=== PATIENT | female | born 1960 | race Caucasian/White ===

== ENCOUNTER 2020-10-07 14:46 | Inpatient (IN) | payer MEDICARE, OTHER ==
[~2020-10-07] VITALS: Ht 154.9 cm; Wt 61.4 kg
--- NOTE | 2020-10-07 15:21 | REP ---
INDICATION: Altered Mental Status. COMPARISON: None. TECHNIQUE: Helical scanning is acquired. 5 mm axial images were reformatted. Coronal MPR images were generated. FINDINGS: Bone window settings demonstrate an intact bony calvarium. There is no evidence of skull fracture or incidental bony calvarial lesion. The visualized paranasal sinuses appear clear. No intraorbital abnormality is seen. On soft tissue window setting images; the lateral, third, and fourth ventricles are normal in size and position. Meza-white differentiation pattern is normal above and below the tentorium. There are is no evidence of intracranial hemorrhage. No mass, edema, infarction, or midline shift is seen. No extra-axial fluid collection is appreciated. IMPRESSION: Negative noncontrast head CT. <Electronically signed by Caleb Moreno > 10/07/20 [id number]
[2020-10-07 15:27] LABS: BASO # 0.1 10^3/uL (0.0-0.2); BASO % 0.6 % (0.0-1.0); EOS # 0.2 10^3/uL (0.0-0.5); EOS % 1.8 % (0.0-3.0); LYMPH # 1.8 10^3/uL (1.5-5.0); LYMPH % 20.4 % (24.0-44.0); MEAN CORPUSCULAR HEMOGLOBIN 30.2 pg (27.0-33.0); MEAN CORPUSCULAR HGB CONC 32.5 g/dl (32.0-36.5); MEAN CORPUSCULAR VOLUME 92.8 fl (80.0-96.0); MONO # 0.6 10^3/uL (0.0-0.8); MONO % 6.7 % (2.0-8.0); NEUTROPHILS # 6.1 10^3/uL (1.5-8.5); PLATELET COUNT, AUTOMATED 385 10^3/uL (150-450); RED BLOOD COUNT 4.31 10^6/uL (4.00-5.40); WHITE BLOOD COUNT 8.8 10^3/uL (4.0-10.0)
[2020-10-07 17:14] LABS: OSMOLALITY SERUM 295 MOSM/KG (275-295)
[2020-10-07 17:36] LABS: ALBUMIN 4.1 GM/DL (3.2-5.2); ALT/SGPT 15 U/L (12-78); BILIRUBIN,DIRECT < 0.1 MG/DL (0.0-0.2); BILIRUBIN,TOTAL 0.6 MG/DL (0.2-1.0); BLOOD UREA NITROGEN 16 MG/DL (7-18); CALCIUM LEVEL 9.9 MG/DL (8.5-10.1); CARBON DIOXIDE LEVEL 25 MEQ/L (21-32); CHLORIDE LEVEL 109 MEQ/L (98-107); CK-MB VALUE MASS < 1.0 NG/ML (<3.6); CPK CREATINE PHOSPHOKINASE 30 U/L (26-192); CREATININE FOR GFR 0.98 MG/DL (0.55-1.30); GLOMERULAR FILTRATION RATE > 60.0 (>51); GLUCOSE, FASTING 97 MG/DL (70-100); LITHIUM LEVEL 0.88 MEQ/L (0.60-1.20); MB/CK RELATIVE INDEX 3.33 (< OR =4); POTASSIUM SERUM 4.3 MEQ/L (3.5-5.1); SODIUM LEVEL 140 MEQ/L (136-145); TOTAL PROTEIN 7.1 GM/DL (6.4-8.2); TROPONIN I < 0.02 NG/ML (< 0.10)
--- NOTE | 2020-10-07 18:11 | REPVR ---
PROCEDURE INFORMATION: Exam: MR Head Without Contrast Exam date and time: 10/07/2020 3:22 PM Age: 60 years old Clinical indication: Other: Ataxia; Additional info: Ataxia ? cerebellar TECHNIQUE: Imaging protocol: MR of the head without contrast. COMPARISON: CT Head without contrast 10/07/2020 2:59 PM FINDINGS: Brain: Two small T1-T2 bright flat interhemispheric foci , dark on gradient weighted imaging consistent with small foci of subdural hemorrhage possibly related to age indeterminate trauma in this patient without any reported history of trauma. Also noted are T1-T2 bright and gradient dark foci of signal abnormality in the posterior convexities near the vertex bilaterally also suspect for age indeterminate hemorrhage in the subdural space. Again the finding may be related to prior trauma. Cerebral ventricles: Normal. No ventriculomegaly. Bones/joints: Unremarkable. Paranasal sinuses: Normal as visualized. No acute sinusitis. Mastoid air cells: Normal as visualized. No mastoid effusion. Orbital cavity: Unremarkable. Soft tissues: Unremarkable. IMPRESSION: 1. Two small T1-T2 bright flat interhemispheric foci , dark on gradient weighted imaging consistent with small foci of subdural hemorrhage possibly related to age indeterminate trauma in this patient without any reported history of trauma. 2. Also noted are T1-T2 bright and gradient dark foci of signal abnormality in the posterior convexities near the vertex bilaterally also suspect for age indeterminate hemorrhage in the subdural space. Again the finding may be related to prior trauma. Electronically signed by: Olivier Gordon On 10/07/2020 18:10:30 PM
--- NOTE | 2020-10-07 18:12 | REPVR ---
PROCEDURE INFORMATION: Exam: MRA Head Without Contrast; Arteriography Exam date and time: 10/07/2020 3:22 PM Age: 60 years old Clinical indication: Other: Ataxia; Additional info: Ataxia ? cerebellar TECHNIQUE: Imaging protocol: Magnetic resonance angiography head without contrast. Exam focused on the arteries. COMPARISON: CT Head without contrast 10/07/2020 2:59 PM FINDINGS: ANTERIOR CIRCULATION: Right internal carotid artery: Intracranial segment is patent with no significant stenosis. No aneurysm. Right middle cerebral artery: No occlusion or significant stenosis. No aneurysm. Right anterior cerebral artery: No occlusion or significant stenosis. No aneurysm. Left internal carotid artery: Intracranial segment is patent with no significant stenosis. No aneurysm. Left middle cerebral artery: No occlusion or significant stenosis. No aneurysm. Left anterior cerebral artery: No occlusion or significant stenosis. No aneurysm. POSTERIOR CIRCULATION: Right vertebral artery: No occlusion or significant stenosis. No aneurysm. Left vertebral artery: No occlusion or significant stenosis. No aneurysm. Basilar artery: No occlusion or significant stenosis. No aneurysm. Right posterior cerebral artery: No occlusion or significant stenosis. No aneurysm. Left posterior cerebral artery: No occlusion or significant stenosis. No aneurysm. IMPRESSION: No stenosis or occlusion. Electronically signed by: Olivier Gordon On 10/07/2020 18:12:23 PM
[2020-10-07 18:42] LABS: ACETAMINOPHEN LEVEL < 2.0 UG/ML (10.0-30.0); ETHYL ALCOHOL (ETHANOL) < 0.003 % (0.000-0.010); SALICYLATE LEVEL < 1.7 MG/DL (5.0-30.0)
[2020-10-07] MEDS ORDERED: LORazepam 1 MG TAB PO STA (18:59)
[2020-10-07 20:51] LABS: RSV AMPLIFICATION NEGATIVE (NEGATIVE)
[2020-10-07 23:26] LABS: AMPHETAMINES LEVEL URINE NEGATIVE (NEGATIVE); BARBITURATES URINE NEGATIVE (NEGATIVE); BENZODIAZEPINES URINE NEGATIVE (NEGATIVE); CANNABINOIDS URINE NEGATIVE (NEGATIVE); COCAINE METABOLITE URINE NEGATIVE (NEGATIVE); METHADONE URINE NEGATIVE (NEGATIVE); OPIATES URINE NEGATIVE (NEGATIVE); PHENCYCLIDINE URINE NEGATIVE (NEGATIVE)
[2020-10-08] MEDS ORDERED: LORazepam 1 MG TAB PO STA (03:46)
[2020-10-08] MEDS ORDERED: LORazepam 1 MG TAB PO ONE ×3 (03:50→20:55)
[2020-10-08] MEDS ORDERED: VENLAFAXINE **XR** 75MG CAPSULE PO ONE (08:20)
[2020-10-08] MEDS ORDERED: lamoTRIgine 100MG TAB PO ONE ×2 (08:20→20:55)
[2020-10-08] MEDS ORDERED: LITHIUM CARBONATE 300 MG **CR** TAB PO ONE ×2 (08:20→20:55)
--- NOTE | 2020-10-08 08:21 | ED PDOC ---
Post-Departure Follow-Up raiology repo rtfaxed to katharine Lomeli Sarah MD Oct 08, 2020 08:21
[2020-10-08] MEDS ORDERED: LITH1TAB PO (10:08)
[2020-10-08] MEDS ORDERED: LATU40TA PO (10:08)
[2020-10-08] MEDS ORDERED: VENL75CA47 PO (10:08)
[2020-10-08] MEDS ORDERED: LAMO150T3 PO (10:08)
[2020-10-08] MEDS ORDERED: LORA1TAB4 PO (10:08)
[2020-10-09] MEDS ORDERED: LITHIUM CARBONATE 300 MG **CR** TAB PO ONE (07:45)
[2020-10-09] MEDS ORDERED: lamoTRIgine 100MG TAB PO ONE (07:45)
[2020-10-09] MEDS ORDERED: VENLAFAXINE **XR** 75MG CAPSULE PO ONE (07:45)
[2020-10-09] MEDS ORDERED: LORazepam 1 MG TAB PO ONE (09:00)
[2020-10-09] MEDS ORDERED: MAALOX 30 ML SUSP *UDC PO PRN (11:10)
[2020-10-09] MEDS ORDERED: MOM 30ML SUSPENSION UDC PO PRN (11:10)
[2020-10-09] MEDS ORDERED: traZODone 50 MG TAB PO PRN (11:10)
[2020-10-09] MEDS ORDERED: ACETAMINOPHEN TAB 650MG DOSE (2X325MG) PO PRN (11:10)
--- NOTE | 2020-10-09 16:37 | ECGEPIP ---
[facility] - ED Test Date: 2020-10-07 Pat Name: LATOYA LUNA Department: Room: - Gender: Female It Security Architect: NATLAEE : 1960 Requested By: Pooja Chau Order Number: [id number] Reading MD: Pooja Chau Measurements Intervals [place] Rate: 94 P: 54 HI: 168 QRS: 71 QRSD: 88 T: 29 QT: 364 QTc: 455 Interpretive Statements Normal sinus rhythm prwp NSTTW abnormalities No prior Electronically Signed on 10-09-2020 16:36:57 EDT by Pooja Chau
--- NOTE | 2020-10-09 16:48 | ECGEPIP ---
[facility] - ED Test Date: 2020-10-08 Pat Name: LATOYA LUNA Department: Room: - Gender: Female Waterproofer: Daysi CID : 1960 Requested By: KARLA Plascencia Order Number: [id number] Reading MD: Pooja Chau Measurements Intervals [place] Rate: 80 P: 74 HI: 166 QRS: 84 QRSD: 88 T: 44 QT: 392 QTc: 452 Interpretive Statements Normal sinus rhythm NSTTW abnormalities decreased rate 10/07/20 Electronically Signed on 10-09-2020 16:48:37 EDT by Pooja Chau
[2020-10-09] MEDS: LORazepam 1 MG TAB PO PRN (18:33)
[2020-10-09] MEDS: lamoTRIgine 100MG TAB PO SCH (20:24)
[2020-10-09] MEDS: LITHIUM CARBONATE 300 MG **CR** TAB PO SCH (20:24)
[2020-10-09] MEDS ORDERED: PILL CUTTER 1 EACH XX PRN (21:00)
[2020-10-10] MEDS: LORazepam 1 MG TAB PO PRN ×3 (00:50→20:08)
[2020-10-10 06:00] VITALS: BP 130/76
[2020-10-10] MEDS: LITHIUM CARBONATE 300 MG **CR** TAB PO SCH ×2 (09:00→20:08)
[2020-10-10] MEDS: VENLAFAXINE **XR** 75MG CAPSULE PO SCH (09:01)
[2020-10-10] MEDS: lamoTRIgine 100MG TAB PO SCH ×2 (09:01→20:08)
--- NOTE | 2020-10-10 11:07 | MHHPEPDOC ---
General Date Of Admission: Oct 09, 2020 Legal Status: 9.39 Chief Complaint "[I came to the hospital because of my hand tremor. I don't know why they said I was a suicide]. History of Present Illness HISTORY OF THE PRESENT ILLNESS: Patient is a 60 -year-old , female, who [has a past history of the manic episode, 32 years ago] and has been in ongoing treatment with lithium and antidepressant medicine on and off. She recently moved to [place] from [place] to be near her daughter, but has been continuing outpatient treatment. She came to the emergency room 3 days of with the complaint of the tremor on her hands and all the routine. Labs were within n ormal limits. Patient was kept at the emergency room and admitted due to reported suicidal ideas, but patient stated that she has not expressed any suicidal thoughts and she never had any suicidal attempts and does not feel suicidal.. She did have on and off depression with feeling sad with crying spells but has been doing fairly good with the current medicine of Effexor and Lamictal. She is pleasant, organized, and in no acute distress and denies any thoughts of suicide and her lithium level was 0.88 and she is not reporting any other toxic or side effect from lithium.. She is agreeing to stay to complete the evaluation, but wants to go home [place]. Psychiatric Review of Systems Depression (2 or more weeks): depressed mood, psychomotor changes, other (. Occasionally crying spells) Dionne (4 or more days of): denies, other (had a manic episode, 32 years ago) Psychosis: denies PTSD: denies Anxiety: denies Past Psychiatric History Previous Psychiatric Diagnosis: [Bipolar disorder]. Previous Psychiatric Admissions: [One admission 30 years ago]. Suicide Attempts: [Daughter]. Psychiatric Follow-up: [In active treatment]. Psychiatric medications: [Effexor Lamictal and lithium]. Past Medical History Medical Problems No medical history Head Injury: No Seizures: No Hospitalizations: No Surgeries: No Family Medical/Psychiatric HX Medical Problems Both parents are . Lung cancer and leukemia Psychiatric Disorders: No Addiction: No Suicide Attemps/Completions: No Addiction History denies Social History Childhood: [Uneventful]. Abuse/Trauma:[No abuse history]. Current Living Situation: [Lives alone, moved from [place] in June 2020]. Education: [Masters degree in education]. 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 Social Support: [Border]. Legal: [None]. Marital: [, 5 years ago]. Mental Status Examination General Appearance: well groomed, appears stated age Build: thin Demeanor: average Eye Contact: average Activity: average Behavior: cooperative Speech: clear, normal volume Mood: euthymic (. Denies any serious depression) Affect: appropriate, congruent Thought Process: logical/linear Thought Content (Delusions): none reported, denies SI, HI, AVH Thought Content (Other): none reported Thought Content (Aggressive): none reported Perception (Hallucinations): none reported Perception (Other): none reported Cognition (Impairment of): none reported Cognition(Intelligence Est.): average Oriented: Awake, Alert, Oriented times three Insight: good Judgment: Good Psychosis: Denies Diagnoses History of bipolar disorder, currently mildly depressed A-FIB/CHADSVASC A-FIB History Current/History of A-Fib/PAF?: No Current PO Anticoag Therapy: No Age/Risk Factor Scoring CHADSVASC: CHADSVASC Response (Comments) Value Gender Risk Factor Female 1 Hx of CHF No 0 Hx of HTN No 0 Hx of Stroke/TIA/or VTE No 0 Hx of Diabetes No 0 Hx of Vascular Disease No 0 Total 1 Treatment Treatment ordered: NONE Assessment Doesn't appear to be acutely suicidal and has a good support system and linked with ongoing outpatient treatment. Needs further assessment for a tremor and lethality evaluation Initial Treatment Plan 1. Patient was admitted on a [9.39] status. 2. Complete history was obtained. 3. With patients permission, family will be contacted and database will be expanded. 4. Patients medication regimen will be reviewed and changed accordingly. 5. Patient will be provided with protected environment. 6. Patient will be treated with individual, group, and milieu therapies. 7. Patient will receive supportive psych-education. 8. Discharge planning will commence immediately. 9. Outpatient follow-up treatment will be strongly recommended. 10. The initial treatment plan will focus initially on: * Depression. * Risk for suicide. ESTIMATED LENGTH OF STAY: [2]- DAYS. TIME SPENT COUNSELING AND COORDINATING INITIAL CARE: [45] minutes. Tobacco Cessation Screen If Patient is a Smoker Nonsmoker N/A-No Antipsychotics Vital Signs Vital Signs Date Time Temp Pulse Resp B/P (MAP) Pulse Ox O2 Delivery O2 Flow Rate FiO2 10/10/20 06:00 97.4 91 18 130/76 (94) 98 Room Air Medications Scheduled Lamotrigine (Lamotrigine) 150 Mg Tablet, 150 MG PO BID, (Reported) [place] Carbonate ([place] Carbonate ER) 300 Mg Tablet.er, 300 MG PO BID, (Reported) Venlafaxine HCl (Venlafaxine HCl ER) 75 Mg Cap.er.24h, 225 MG PO DAILY, (Repor renee) Scheduled PRN Lorazepam (Lorazepam) 1 Mg Tablet, 1 MG PO TID PRN for ANXIETY, (Reported) Allergies Coded Allergies: No Known Drug Allergies (Verified Allergy, Unknown, 10/07/20) ERIC BECERRA M.D. Oct 10, 2020 11:07
--- NOTE | 2020-10-10 13:39 | HPEPDOC ---
[facility] Medical History & Physical Date of Admission Oct 09, 2020 Date of Service: Oct 10, 2020 History and Physical Chief complaint: Who presented to the emergency room with suicidal ideation/hand tremor History of present illness: Patient is a 60-year-old female with past medical history of bipolar disorder, psoriasis and psoriatic arthritis who presented to the emergency room with hand tremors. Patient had mentioned suicidal aviation and was subsequently admitted to the inpatient mental health unit under the care of psychiatry. Hospitalist service was consulted for medical screening evaluation. Currently patient denies any headache, nausea, vomiting, chest pain, shortness breath or cough. Denies any abdominal pain, constipation, diarrhea, or urinary discomfort. She denies any recent fevers or chills. Reports her appetite has been relatively normal. Patient reports some palpitations. However, she attributes this to anxiety. 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 Review of Systems: 10 point review of systems complete, all negative otherwise stated in HPI Physical exam: - Vitals: BP [130/76], HR [91], RR [18], Sat [98%RA], Temp [97.4F] - General: Lying in bed, No acute distress, Speaking in full sentences, AAOx3 - HEENT: NC, AT, PERRLA - CVS: RRR, +S1S2 - Lungs: Fair air entry bilaterally, No appreciable wheezing / rales / rhonchi - Abdomen: Soft, Non-distended, Non-tender - Extremities: No lower extremity edema, No calf tenderness - Neuro: No focal motor or sensory deficit - Skin: No visible rashes Labs: See below Imaging: CT head 10/07: Negative noncontrast head CT. MRI Brain 10/07: 1. Two small T1-T2 bright flat interhemispheric foci , dark on gradient weighted imaging consistent with small foci of subdural hemorrhage possibly related to age indeterminate trauma in this patient without any reported history of trauma. 2. Also noted are T1-T2 bright and gradient dark foci of signal abnormality in the posterior convexities near the vertex bilaterally also suspect for age indeterminate hemorrhage in the subdural space. Again the finding may be related to prior trauma. MRA Brain 10/07: No stenosis or occlusion. EKG: See below Assessment and Plan: Suicidal ideation - Patient is a prior history of bipolar disorder - Has been admitted to the inpatient mental health unit under the care of psychiatry - Currently being managed by psychiatry Abnormal MRI findings - MRI suggests prior history of hemorrhage - Patient reports that she has fallen in the winter - Will have outpatient follow-up with neurology Psoriasis/psoriatic arthritis - Patient reports that she takes Enbrel as an outpatient DVT prophylaxis - Will continue with early ambulation Female watershed tender was present for the duration of his history and physical examination Thank you for this consultation; hospitalist service will now sign off, please reconsult as needed Vital Signs Vital Signs Date Time Temp Pulse Resp B/P (MAP) Pulse Ox O2 Delivery O2 Flow Rate FiO2 10/10/20 06:00 97.4 91 18 130/76 (94) 98 Room Air Home Medications Scheduled Lamotrigine (Lamotrigine) 150 Mg Tablet, 150 MG PO BID [place] Carbonate ([place] Carbonate ER) 300 Mg Tablet.er, 300 MG PO BID Venlafaxine HCl (Venlafaxine HCl ER) 75 Mg Cap.er.24h, 225 MG PO DAILY Scheduled PRN Lorazepam (Lorazepam) 1 Mg Tablet, 1 MG PO TID PRN for ANXIETY Allergies Coded Allergies: No Known Drug Allergies (Verified Allergy, Unknown, 10/07/20) MATILDE RAMOS MD Oct 10, 2020 13:39
[2020-10-10 16:20] VITALS: BP 124/66
[2020-10-11 06:24] VITALS: BP 124/59
--- NOTE | 2020-10-11 08:57 | MHDSPDOC ---
[facility] Discharge Summary Discharge Summary DATE OF ADMISSION: Oct 09, 2020 at 11:09 DATE OF DISCHARGE: 10/11/2020 DISCHARGE DIAGNOSES: 1. . Bipolar disorder, depressed 2. . REASON FOR ADMISSION: 60-year-old single female with a long history of bipolar disorder apparently came to the emergency room with complaint of tremor in her hands and arms. She reportedly made a comment of suicidal ideas and was admitted on 939 status. After her admission patient denies making any suicidal comment and stated that they must have misunderstood her complaint. She has been taking 600 mg of lithium and was experiencing increasing tremor in her hands and arms which is intermittent but gets worse when she tries to write or do things with her hands., She was getting concerned and came to emergency room seeking help and denies making any suicidal threats. She has recently moved to [place] from [place] to be near her daughter, but is continuing her outpatient treatment with psychiatrist and [place]. CONSULTANTS INVOLVED: Will be referred to a neurologist clinic for follow-upfor the tremor. TREATMENT AND PROGRESS ON THE UNIT : . She was also sent for supportive therapy and lethality evaluation and restarted on her home medications of lithium, Lamictal, and Effexor. On admission blood lithium level was 0.88 and she doesn't have any other side effects., It is possible that the tremor might be related to her lithium, especially the nature of intention, tremor and not the resting tremor that is more typical of Parkinson's nature and patient will be advised to discuss with the outpatient psychiatrist and neurologist to consider any changes in her lithium therapy.. HOSPITAL COURSE: , She remained in good control in no acute distress and denies any suicidal thoughts, plan or intent and has no history of suicide attempt." Daughter was contacted who also reports that she has no issues with lethality and and feels the patient is at her baseline mental status and asking for discharge. DISCHARGE ASSESSMENT: Kamila and not suicidal MENTAL STATUS EXAMINATION ON DISCHARGE: Patient is a 60-year old female, who is , pleasant, cooperative. Speech is , productive, spontaneous. Language skills are good . Thought processes including: Well-organized. Thought content: More serious depression. No suicidal thoughts. Abstract reasoning, and computation: Good. Description of associations: Well-organized. Description of abnormal or psychotic thoughts: None. Judgment: Good. . Insight: Good. Orientation to , well oriented. Recent and remote memory: Good. Attention span and concentration: Good. Language: . Fund of knowledge: . Mood: Euthymic. Affect: , Appropriate. MEDICATIONS ON DISCHARGE: - for ., No prescription was given. Patient is to continue her home medications - for . - for . PLAN/FOLLOWUP ARRANGEMENTS: [Continued current outpatient and patient has appo intment to see her psychiatrist on , October 12. The amount of time spent in the coordination of care for this patient was approximately 40 minutes. ETOH/Disorder Med Rx ETOH/DRUG DISORDER RX: N/A Vital Signs/I&Os Vital Signs Date Time Temp Pulse Resp B/P (MAP) Pulse Ox O2 Delivery O2 Flow Rate FiO2 10/11/20 06:24 99.1 68 18 124/59 (80) 97 Room Air Medications Scheduled Lamotrigine (Lamotrigine) 150 Mg Tablet, 150 MG PO BID, (Reported) [place] Carbonate ([place] Carbonate ER) 300 Mg Tablet.er, 300 MG PO BID, (Reported) Venlafaxine HCl (Venlafaxine HCl ER) 75 Mg Cap.er.24h, 225 MG PO DAILY, (Reported) Scheduled PRN Lorazepam (Lorazepam) 1 Mg Tablet, 1 MG PO TID PRN for ANXIETY, (Reported) Allergies Coded Allergies: No Known Drug Allergies (Verified Allergy, Unknown, 10/07/20) ERIC BECERRA M.D. Oct 11, 2020 08:57
[2020-10-11] MEDS: LITHIUM CARBONATE 300 MG **CR** TAB PO SCH (09:07)
[2020-10-11] MEDS: VENLAFAXINE **XR** 75MG CAPSULE PO SCH (09:07)
[2020-10-11] MEDS: lamoTRIgine 100MG TAB PO SCH (09:09)
== END 2020-10-11 11:25 | disposition home or self-care (01) | DRG 885 ==
LOC: M ED 14:46 → EDBD 14:46 → M ED INP 10-09 11:09 → M PSY 10-09 12:30 → M ED INP 10-09 12:30 → M PSY 10-09 12:45
PROVIDERS: ADMIT Psychiatry & Neurology Psychiatry; ATTEND Psychiatry & Neurology Psychiatry
DX: F31.9 Bipolar disorder, unspecified (principal); L40.50 Arthropathic psoriasis, unspecified; Z79.899 Other long term (current) drug therapy; R25.1 Tremor, unspecified

== ENCOUNTER → 2020-12-04 | Outpatient (REF) | payer MEDICARE, OTHER ==
[~2020-12-04] MED LIST: LAMO150T3 PO; LATU40TA PO; LITH1TAB PO; LORA1TAB4 PO; VENL75CA47 PO
[2020-12-04 17:35] LABS: APPEARANCE, URINE CLEAR (CLEAR); BACTERIA, URINE AUTO NEGATIVE (NEGATIVE); BILIRUBIN, URINE AUTO NEGATIVE (NEGATIVE); BLOOD, URINE BLOOD NEGATIVE (NEGATIVE); COLOR, URINE STRAW (YELLOW); GLUCOSE, URINE (UA) AUTO NEGATIVE (NEGATIVE); KETONE, URINE AUTO NEGATIVE (NEGATIVE); LEUKOCYTE ESTERASE, URINE AUTO NEGATIVE (NEGATIVE); NITRITE, URINE AUTO NEGATIVE (NEGATIVE); PROTEIN, URINE AUTO NEGATIVE (NEGATIVE); RBC, URINE AUTO 0 /HPF (0-3); SPECIFIC GRAVITY URINE AUTO 1.006 (1.002-1.035); SQUAMOUS EPITHELIAL CELL UR AU 1 /HPF (0-6); UROBILINOGEN, URINE AUTO 0.2 mg/dL (0.0-2.0); WBC, URINE AUTO 2 /HPF (0-3)
== END ==
LOC: M LAB REF 16:53
PROVIDERS: ATTEND Physician Assistant Medical
DX: N39.0 Urinary tract infection, site not specified (principal)

== ENCOUNTER → 2021-01-26 | Outpatient (REF) | payer MEDICARE, OTHER | LOC: M LAB REF 16:42 | PROVIDERS: ATTEND Internal Medicine | DX: E83.52 Hypercalcemia (principal) ==

== ENCOUNTER 2021-03-29 13:50 | Emergency (ER) | payer MEDICARE, OTHER ==
[~2021-03-29] VITALS: Ht 154.9 cm; Wt 61.0 kg
[2021-03-29] MEDS ORDERED: ARIP10TA32 (13:59)
[2021-03-29] MEDS ORDERED: CLON1TAB8 (13:59)
[2021-03-29] MEDS ORDERED: LEVO100T5 (13:59)
[2021-03-29] MEDS ORDERED: CHARCOAL ACTIVATED LIQUID 25 GM/120 ML BTL PO ONE (14:05)
[2021-03-29 14:24] LABS: BASO # 0.1 10^3/uL (0.0-0.2); BASO % 0.8 % (0.0-1.0); EOS # 0.1 10^3/uL (0.0-0.5); EOS % 0.8 % (0.0-3.0); HEMATOCRIT 41.1 % (36.0-47.0); HEMOGLOBIN 13.6 g/dl (12.0-15.5); LYMPH # 1.6 10^3/uL (1.5-5.0); LYMPH % 25.7 % (24.0-44.0); MEAN CORPUSCULAR HEMOGLOBIN 30.4 pg (27.0-33.0); MEAN CORPUSCULAR HGB CONC 33.1 g/dl (32.0-36.5); MEAN CORPUSCULAR VOLUME 91.7 fl (80.0-96.0); MONO # 0.4 10^3/uL (0.0-0.8); NEUTROPHILS # 4.2 10^3/uL (1.5-8.5); NEUTROPHILS % 66.5 % (36.0-66.0); PLATELET COUNT, AUTOMATED 325 10^3/uL (150-450); RED BLOOD COUNT 4.48 10^6/uL (4.00-5.40); WHITE BLOOD COUNT 6.4 10^3/uL (4.0-10.0)
[2021-03-29 14:58] LABS: OSMOLALITY SERUM 305 MOSM/KG (275-295)
[2021-03-29 15:00] LABS: RSV AMPLIFICATION NEGATIVE (NEGATIVE)
[2021-03-29 15:05] LABS: ACETAMINOPHEN LEVEL < 2.0 UG/ML (10.0-30.0); ALT/SGPT 22 U/L (12-78); BILIRUBIN,DIRECT < 0.1 MG/DL (0.0-0.2); BILIRUBIN,TOTAL 0.3 MG/DL (0.2-1.0); BLOOD UREA NITROGEN 28 MG/DL (7-18); CALCIUM LEVEL 10.4 MG/DL (8.5-10.1); CARBON DIOXIDE LEVEL 27 MEQ/L (21-32); CHLORIDE LEVEL 110 MEQ/L (98-107); CREATININE FOR GFR 0.99 MG/DL (0.55-1.30); ETHYL ALCOHOL (ETHANOL) < 0.003 % (0.000-0.010); GLOMERULAR FILTRATION RATE > 60.0 (>51); GLUCOSE, FASTING 93 MG/DL (70-100); POTASSIUM SERUM 4.2 MEQ/L (3.5-5.1); SALICYLATE LEVEL < 1.7 MG/DL (5.0-30.0); SODIUM LEVEL 143 MEQ/L (136-145); TOTAL PROTEIN 6.9 GM/DL (6.4-8.2)
[2021-03-29 15:07] LABS: AMPHETAMINES LEVEL URINE NEGATIVE (NEGATIVE); BARBITURATES URINE NEGATIVE (NEGATIVE); BENZODIAZEPINES URINE NEGATIVE (NEGATIVE); CANNABINOIDS URINE NEGATIVE (NEGATIVE); COCAINE METABOLITE URINE NEGATIVE (NEGATIVE); METHADONE URINE NEGATIVE (NEGATIVE); OPIATES URINE NEGATIVE (NEGATIVE); PHENCYCLIDINE URINE NEGATIVE (NEGATIVE)
[2021-03-29] MEDS ORDERED: NS 1,000 ML IV ONE ×2 (16:15→18:10)
--- NOTE | 2021-03-29 20:33 | ECGEPIP ---
[facility] - ED Test Date: 2021-03-29 Pat Name: LATOYA LUNA Department: Room: - Gender: Female Shovel Operator: LR : 1960 Requested By: EFRAIN Arce Order Number: [id number] Reading MD: Hector Lehman Measurements Intervals [place] Rate: 111 P: 61 [place]: 168 QRS: 103 QRSD: 88 T: 26 QT: 336 QTc: 456 Interpretive Statements Sinus tachycardia Rightward axis SIMILAR TO 10/08/20 Electronically Signed on 03-29-2021 20:33:35 EST by Hector Lehman
[2021-03-29] MEDS ORDERED: ONDANSETRON 4 MG ORAL DISINTEGRATING TAB PO ONE (22:15)
[2021-03-30 09:00] VITALS: BP 128/62
== END 2021-03-30 09:03 ==
LOC: M ED 13:50 → EDBD 13:50 → M ED 03-30 09:03
DX: R45.851 Suicidal ideations (principal); T42.0X2A Poisoning by hydantoin derivatives, intentional self-harm, initial encounter; F31.30 Bipolar disorder, current episode depressed, mild or moderate severity, unspecified; F19.10 Other psychoactive substance abuse, uncomplicated; R00.0 Tachycardia, unspecified; Z79.899 Other long term (current) drug therapy
CPT/HCPCS: 36415; 80048; 80076; 80143; 80175; 80307; 82077; 82550; 83930; 84443; 85025; 87631; 93005; 93041; 94760; 96360; 96361; 99285; Q0162

== ENCOUNTER 2021-08-04 12:26 | Inpatient (IN) | payer MEDICARE, OTHER ==
[2021-08-04] VITALS (13 sets, daily range): BP systolic 162–215; BP diastolic 67–129
[~2021-08-04] VITALS: Ht 154.9 cm; Wt 61.5 kg
[~2021-08-04 12:26] MED LIST changes: +AMOX875T2 PO; +ARIP10TA32; +ATIV1TAB10 PO; +CLOB5CR TOP; +CLON-412 PO; +CLON0.2T PO; +CLON1TAB8; +DEPA500T2 PO; -LATU40TA PO; +LATU40TA2 PO; +LEVO100T5; +LEXA1TAB PO; +LEXA1TAB2 PO; +MIRT-60 PO; +MIRT1TAB16 PO; +PENC1CR TOP; +PROP10TA56 PO; +SERO1TAB PO; +SERO50TA PO; +SYNT100T PO; +TRAZ-252 PO; +VITA100T14 PO
[2021-08-04] MEDS ORDERED: NS 1,000 ML IV SCH (12:40)
[2021-08-04] MEDS ORDERED: LIDOCAINE 2% 5ML JELLY UROJET TOP ONE (12:40)
[2021-08-04] MEDS ORDERED: NS 1,000 ML IV ONE ×3 (13:05→16:25)
[2021-08-04 13:07] LABS: BASO % 0.3 % (0.0-1.0); HEMATOCRIT 37.5 % (36.0-47.0); HEMOGLOBIN 12.3 g/dl (12.0-15.5); LYMPH % 13.7 % (24.0-44.0); MEAN CORPUSCULAR HEMOGLOBIN 32.3 pg (27.0-33.0); MEAN CORPUSCULAR HGB CONC 32.8 g/dl (32.0-36.5); MEAN CORPUSCULAR VOLUME 98.4 fl (80.0-96.0); MONO # 0.2 10^3/uL (0.0-0.8); MONO % 2.9 % (2.0-8.0); NEUTROPHILS # 5.9 10^3/uL (1.5-8.5); NEUTROPHILS % 80.5 % (36.0-66.0); PLATELET COUNT, AUTOMATED 429 10^3/uL (150-450); RED BLOOD COUNT 3.81 10^6/uL (4.00-5.40); WHITE BLOOD COUNT 7.4 10^3/uL (4.0-10.0)
[2021-08-04] MEDS ORDERED: ISOVUE-370 76% 100ML VIAL As Ordered ONE (13:09)
[2021-08-04 13:21] LABS: INR 1.03; PROTHROMBIN TIME 13.9 SECONDS (12.7-14.5)
[2021-08-04 13:22] LABS: PARTIAL THROMBOPLASTIN TIME 31.4 SECONDS (25.9-37.0)
[2021-08-04 13:33] LABS: CK-MB VALUE MASS 6.3 NG/ML (<3.6); MB/CK RELATIVE INDEX 1.45 (< OR =4)
[2021-08-04 13:41] LABS: AMPHETAMINES LEVEL URINE NEGATIVE (NEGATIVE); BARBITURATES URINE NEGATIVE (NEGATIVE); BENZODIAZEPINES URINE NEGATIVE (NEGATIVE); CANNABINOIDS URINE NEGATIVE (NEGATIVE); COCAINE METABOLITE URINE NEGATIVE (NEGATIVE); METHADONE URINE NEGATIVE (NEGATIVE); OPIATES URINE NEGATIVE (NEGATIVE); PHENCYCLIDINE URINE NEGATIVE (NEGATIVE)
[2021-08-04 13:45] LABS: CALCIUM LEVEL 8.9 MG/DL (8.8-10.2); CREATININE FOR GFR 1.11 MG/DL (0.55-1.30); GLOMERULAR FILTRATION RATE 53.4 (>45); POTASSIUM SERUM 3.3 MEQ/L (3.5-5.1)
[2021-08-04 13:46] LABS: ACETAMINOPHEN LEVEL 430.8 UG/ML (10.0-30.0); ALBUMIN 3.8 GM/DL (3.2-5.2); BILIRUBIN,DIRECT 0.2 MG/DL (0.0-0.2); BILIRUBIN,TOTAL 0.6 MG/DL (0.2-1.0); ETHYL ALCOHOL (ETHANOL) 0.136 % (0.000-0.010); SALICYLATE LEVEL 2.3 MG/DL (5.0-30.0); THYROID STIMULATING HORMONE 3.22 uIU/ML (0.358-3.740); TOTAL PROTEIN 7.2 GM/DL (6.4-8.2)
[2021-08-04 13:55] LABS: RSV AMPLIFICATION NEGATIVE (NEGATIVE)
[2021-08-04] MEDS ORDERED: PIPERACILLIN/TAZOBACTAM SOD 4.5 GM in D5W MINI-BAG PLUS 50 ML IV ONE (14:00)
[2021-08-04] MEDS ORDERED: TRAZ1TAB14 PO (14:48)
[2021-08-04] MEDS ORDERED: SENN-83 PO (14:48)
[2021-08-04] MEDS ORDERED: SYNT100T PO (14:48)
[2021-08-04] MEDS ORDERED: LAMO200T3 PO (14:48)
[2021-08-04] MEDS ORDERED: CELE20TA PO (14:48)
[2021-08-04] MEDS ORDERED: CLON1TAB8 PO (14:48)
[2021-08-04] MEDS ORDERED: BUSP10TA PO (14:48)
[2021-08-04] MEDS ORDERED: ACET1TAB55 PO (14:48)
[2021-08-04] MEDS ORDERED: B-COTAB10 PO (14:48)
[2021-08-04] MEDS ORDERED: IBUP-1022 PO (14:48)
[2021-08-04] MEDS ORDERED: DOCU100C16 PO (14:48)
[2021-08-04] MEDS ORDERED: MULT400T10 PO (14:48)
[2021-08-04] MEDS ORDERED: METH-1164 PO (14:48)
[2021-08-04] MEDS ORDERED: MIRT-10 PO (14:48)
[2021-08-04] MEDS ORDERED: ACETYLCYSTEINE IV ONE (14:55)
[2021-08-04] MEDS ORDERED: D5W IV ONE (14:55)
[2021-08-04 15:18] LABS: ABG pH (ARTERIAL) 7.337 UNITS (7.350-7.450)
[2021-08-04 15:19] LABS: ABG BASE EXCESS -14.4 (-2.0-2.0); ABG HCO3 9.3 MEQ/L (22.0-26.0); ABG O2 SATURATION 96.5 % (95.0-99.0); ABG PARTIAL PRESSURE CO2 17.7 mmHg (35.0-45.0); ABG STANDARD HCO3 13.2 MEQ/L (22.0-26.0); ABG TOTAL CO2 9.8 MEQ/L (23.0-31.0)
[2021-08-04] MEDS ORDERED: HOME MED LIST COMPLETE! XX SCH (15:20)
[2021-08-04 15:47] LABS: BLOOD UREA NITROGEN 23 MG/DL (7-18); CALCIUM LEVEL 7.8 MG/DL (8.8-10.2); CARBON DIOXIDE LEVEL 13 MEQ/L (21-32); CHLORIDE LEVEL 110 MEQ/L (98-107); CREATININE FOR GFR 0.97 MG/DL (0.55-1.30); GLOMERULAR FILTRATION RATE > 60.0 (>45); GLUCOSE, FASTING 129 MG/DL (70-100); POTASSIUM SERUM 3.5 MEQ/L (3.5-5.1); SODIUM LEVEL 140 MEQ/L (136-145)
[2021-08-04 15:53] LABS: CK-MB VALUE MASS 9.6 NG/ML (<3.6); MB/CK RELATIVE INDEX 1.73 (< OR =4)
[2021-08-04] MEDS ORDERED: ACETYLCYSTEINE IV SCH (16:00)
[2021-08-04] MEDS ORDERED: D5W IV SCH (16:00)
[2021-08-04] MEDS ORDERED: ACETYLCYSTEINE 20% 30 ML VIAL IV SCH (16:25)
[2021-08-04] MEDS ORDERED: NS IV ONE ×2 (16:30→21:00)
[2021-08-04] MEDS ORDERED: ONDANSETRON 4MG/2ML VIAL IV STA (16:30)
[2021-08-04] MEDS ORDERED: FOMEPIZOLE IV ONE ×2 (16:30→21:00)
[2021-08-04] MEDS ORDERED: ONDANSETRON 4MG/2ML VIAL As Ordered ONE (16:32)
[2021-08-04] MEDS ORDERED: PANTOPRAZOLE 40MG VIAL IV ONE (16:35)
[2021-08-04] MEDS ORDERED: ALBUTEROL SULFATE 2.5 MG/0.5 ML INH NEB SOLN INH PRN (16:40)
[2021-08-04] MEDS ORDERED: ONDANSETRON 4MG/2ML VIAL IV PRN (16:40)
[2021-08-04 18:08] LABS: CK-MB VALUE MASS 13.9 NG/ML (<3.6); MB/CK RELATIVE INDEX 1.91 (< OR =4)
[2021-08-04 19:10] LABS: HEMATOCRIT 29.6 % (36.0-47.0); HEMOGLOBIN 9.9 g/dl (12.0-15.5); MEAN CORPUSCULAR HEMOGLOBIN 31.8 pg (27.0-33.0); MEAN CORPUSCULAR HGB CONC 33.4 g/dl (32.0-36.5); MEAN CORPUSCULAR VOLUME 95.2 fl (80.0-96.0); PLATELET COUNT, AUTOMATED 357 10^3/uL (150-450); RED BLOOD COUNT 3.11 10^6/uL (4.00-5.40); WHITE BLOOD COUNT 13.5 10^3/uL (4.0-10.0)
[2021-08-04 19:37] LABS: ACETAMINOPHEN LEVEL 131.5 UG/ML (10.0-30.0); ALT/SGPT 95 U/L (12-78); BILIRUBIN,DIRECT 0.2 MG/DL (0.0-0.2); BILIRUBIN,TOTAL 0.6 MG/DL (0.2-1.0); BLOOD UREA NITROGEN 23 MG/DL (7-18); CALCIUM LEVEL 7.8 MG/DL (8.8-10.2); CARBON DIOXIDE LEVEL 19 MEQ/L (21-32); CHLORIDE LEVEL 110 MEQ/L (98-107); CREATININE FOR GFR 0.84 MG/DL (0.55-1.30); GLOMERULAR FILTRATION RATE > 60.0 (>45); GLUCOSE, FASTING 145 MG/DL (70-100); POTASSIUM SERUM 3.5 MEQ/L (3.5-5.1); SODIUM LEVEL 142 MEQ/L (136-145); TOTAL PROTEIN 5.8 GM/DL (6.4-8.2)
[2021-08-04] MEDS: PIPERACILLIN/TAZOBACTAM SOD 3.375 GM in D5W MINI-BAG PLUS 50 ML IV SCH (20:35)
[2021-08-04] MEDS: D5W IV SCH (20:48)
[2021-08-04] MEDS: ACETYLCYSTEINE IV SCH (20:48)
[2021-08-04] MEDS ORDERED: LIDOCAINE 5% (LIDODERM) PATCH TD ONE (22:00)
[2021-08-04] MEDS ORDERED: hydrALAZINE 20MG/ML 1ML VIAL (J0360 PER 20MG) IV STA (22:36)
[2021-08-05] VITALS (21 sets, daily range): BP systolic 128–201; BP diastolic 60–105
[2021-08-05] MEDS: ACETYLCYSTEINE IV SCH ×3 (00:10→08:14)
[2021-08-05] MEDS: D5W IV SCH ×3 (00:10→08:14)
[2021-08-05 00:38] LABS: ACETAMINOPHEN LEVEL 40.2 UG/ML (10.0-30.0); ALBUMIN 2.8 GM/DL (3.2-5.2); ALT/SGPT 104 U/L (12-78); BILIRUBIN,DIRECT 0.3 MG/DL (0.0-0.2); BILIRUBIN,TOTAL 0.7 MG/DL (0.2-1.0); BLOOD UREA NITROGEN 23 MG/DL (7-18); CALCIUM LEVEL 7.4 MG/DL (8.8-10.2); CARBON DIOXIDE LEVEL 17 MEQ/L (21-32); CHLORIDE LEVEL 112 MEQ/L (98-107); CREATININE FOR GFR 0.82 MG/DL (0.55-1.30); GLOMERULAR FILTRATION RATE > 60.0 (>45); GLUCOSE, FASTING 126 MG/DL (70-100); NT-PRO BNP 477 PG/ML (<125); POTASSIUM SERUM 3.3 MEQ/L (3.5-5.1); SODIUM LEVEL 141 MEQ/L (136-145); TOTAL PROTEIN 5.3 GM/DL (6.4-8.2)
[2021-08-05] MEDS: PIPERACILLIN/TAZOBACTAM SOD 3.375 GM in D5W MINI-BAG PLUS 50 ML IV SCH ×4 (01:47→20:41)
[2021-08-05] MEDS: [UNRECOGNIZED DRUG - OTHER] IV SCH ×8 (01:47→05:00)
[2021-08-05] MEDS: KCL IV SCH ×8 (01:47→05:00)
[2021-08-05] MEDS ORDERED: KCL 20MEQ IN 100ML SWI (KRUN) 20 MEQ in IV 1 EA IV SCH ×2 (02:00)
[2021-08-05] MEDS: THIAMINE 100 MG TAB PO SCH ×3 (03:39→20:41)
[2021-08-05 04:58] LABS: VENOUS BASE EXCESS -7.7 (-2.0-2.0); VENOUS HCO3 15.1 MEQ/L (23.0-27.0); VENOUS O2 SATURATION 99.2 % (60.0-80.0); VENOUS PARTIAL PRESSURE O2 201.8 mmHg (30.0-50.0); VENOUS PH 7.434 UNITS (7.330-7.430); VENOUS STANDARD HCO3 18.2 MEQ/L; VENOUS TOTAL CO2 15.8 MEQ/L (24.0-28.0)
[2021-08-05 05:02] LABS: HEMATOCRIT 27.8 % (36.0-47.0); HEMOGLOBIN 9.4 g/dl (12.0-15.5); MEAN CORPUSCULAR HEMOGLOBIN 32.4 pg (27.0-33.0); MEAN CORPUSCULAR HGB CONC 33.8 g/dl (32.0-36.5); MEAN CORPUSCULAR VOLUME 95.9 fl (80.0-96.0); PLATELET COUNT, AUTOMATED 302 10^3/uL (150-450); WHITE BLOOD COUNT 14.4 10^3/uL (4.0-10.0)
[2021-08-05 05:13] LABS: INR 1.12; PROTHROMBIN TIME 14.8 SECONDS (12.7-14.5)
[2021-08-05 05:29] LABS: ALBUMIN 2.7 GM/DL (3.2-5.2); ALT/SGPT 98 U/L (12-78); BILIRUBIN,TOTAL 0.7 MG/DL (0.2-1.0); BLOOD UREA NITROGEN 18 MG/DL (7-18); CALCIUM LEVEL 7.5 MG/DL (8.8-10.2); CARBON DIOXIDE LEVEL 18 MEQ/L (21-32); CHLORIDE LEVEL 111 MEQ/L (98-107); CREATININE FOR GFR 0.84 MG/DL (0.55-1.30); GLOMERULAR FILTRATION RATE > 60.0 (>45); GLUCOSE, FASTING 150 MG/DL (70-100); MAGNESIUM LEVEL 1.8 MG/DL (1.8-2.4); POTASSIUM SERUM 3.4 MEQ/L (3.5-5.1); SODIUM LEVEL 143 MEQ/L (136-145); TOTAL PROTEIN 5.4 GM/DL (6.4-8.2); VALPROIC ACID (DEPAKOTE) < 3.0 UG/ML (50.0-100.0)
[2021-08-05] MEDS: MULTIVITAMINS/MINERALS THERAP 1 TAB PO SCH (08:44)
[2021-08-05] MEDS: LORazepam 2 MG TAB PO PRN ×2 (08:44→22:05)
[2021-08-05] MEDS: FOLIC ACID 1 MG TAB PO SCH (08:44)
[2021-08-05] MEDS: PANTOPRAZOLE 40MG VIAL IV SCH (08:45)
[2021-08-05] MEDS ORDERED: **NOTE PATIENT COMMENT** MISC XX ONE (09:00)
[2021-08-05 11:10] LABS: ACETAMINOPHEN LEVEL 5.5 UG/ML (10.0-30.0); ALBUMIN 2.6 GM/DL (3.2-5.2); ALT/SGPT 104 U/L (12-78); BILIRUBIN,DIRECT 0.2 MG/DL (0.0-0.2); BILIRUBIN,TOTAL 0.7 MG/DL (0.2-1.0); TOTAL PROTEIN 5.1 GM/DL (6.4-8.2)
[2021-08-05] MEDS ORDERED: MIRALAX *UNIT DOSE* 17GM PACKET PO PRN (11:40)
[2021-08-05] MEDS ORDERED: diphenhydrAMINE 50MG CAP PO ONE (17:10)
[2021-08-05] MEDS ORDERED: KETOROLAC 30 MG/ML 1ML VIAL IV ONE (21:00)
[2021-08-05] MEDS: valACYclovir HCL 500 MG TAB PO SCH (21:02)
[2021-08-06] VITALS: BP 124/68
[2021-08-06] MEDS: PIPERACILLIN/TAZOBACTAM SOD 3.375 GM in D5W MINI-BAG PLUS 50 ML IV SCH ×4 (00:54→19:57)
[2021-08-06] MEDS: LORazepam 2 MG TAB PO PRN ×3 (00:54→20:32)
[2021-08-06] MEDS ORDERED: diphenhydrAMINE 25MG CAP PO PRN (01:00)
[2021-08-06 04:00] VITALS: BP 111/58
[2021-08-06 05:06] LABS: HEMATOCRIT 24.7 % (36.0-47.0); HEMOGLOBIN 8.4 g/dl (12.0-15.5); MEAN CORPUSCULAR HEMOGLOBIN 32.3 pg (27.0-33.0); PLATELET COUNT, AUTOMATED 256 10^3/uL (150-450); WHITE BLOOD COUNT 7.5 10^3/uL (4.0-10.0)
[2021-08-06 05:17] LABS: INR 1.04
[2021-08-06 05:30] LABS: ALBUMIN 2.6 GM/DL (3.2-5.2); ALT/SGPT 74 U/L (12-78); BILIRUBIN,TOTAL 0.8 MG/DL (0.2-1.0); BLOOD UREA NITROGEN 13 MG/DL (7-18); CALCIUM LEVEL 8.4 MG/DL (8.8-10.2); CARBON DIOXIDE LEVEL 25 MEQ/L (21-32); CHLORIDE LEVEL 113 MEQ/L (98-107); CREATININE FOR GFR 0.88 MG/DL (0.55-1.30); GLOMERULAR FILTRATION RATE > 60.0 (>45); GLUCOSE, FASTING 97 MG/DL (70-100); SODIUM LEVEL 143 MEQ/L (136-145); TOTAL PROTEIN 5.3 GM/DL (6.4-8.2)
[2021-08-06] MEDS: valACYclovir HCL 500 MG TAB PO SCH ×3 (06:00→21:23)
[2021-08-06 08:00] VITALS: BP 115/56
[2021-08-06] MEDS: FOLIC ACID 1 MG TAB PO SCH (08:09)
[2021-08-06] MEDS: THIAMINE 100 MG TAB PO SCH ×2 (08:10→21:23)
[2021-08-06] MEDS: MULTIVITAMINS/MINERALS THERAP 1 TAB PO SCH (08:10)
[2021-08-06] MEDS: PANTOPRAZOLE 40MG VIAL IV SCH (08:59)
[2021-08-06] MEDS ORDERED: POTASSIUM CHLORIDE 10MEQ SR TABLET PO SCH (09:00)
[2021-08-06] MEDS ORDERED: KCL 10MEQ/100ML SWI (KRUN) 10 MEQ in IV 1 EA IV SCH (11:00)
[2021-08-06] MEDS: LEVOTHYROXINE 100MCG TABLET (0.1MG) PO SCH (11:28)
[2021-08-06] MEDS: CitaloPRAM (CeleXA) 20 MG TAB PO SCH (11:28)
[2021-08-06 12:00] VITALS: BP 98/49
[2021-08-06] MEDS: busPIRone 10 MG TAB PO SCH ×3 (12:22→21:24)
[2021-08-06] MEDS: ONDANSETRON 4MG/2ML VIAL IV PRN ×2 (12:24→19:11)
[2021-08-06] MEDS: POTASSIUM CHLORIDE 10MEQ SR TABLET PO SCH ×2 (16:23→21:23)
[2021-08-06 20:00] VITALS: BP 145/78
[2021-08-06] MEDS: traZODone 50 MG TAB PO SCH (21:24)
[2021-08-06] MEDS: lamoTRIgine 100MG TAB PO SCH (21:24)
[2021-08-06] MEDS: MIRTAZAPINE 15 MG TAB PO SCH (21:24)
[2021-08-07] VITALS: BP 118/64
[2021-08-07] MEDS: PIPERACILLIN/TAZOBACTAM SOD 3.375 GM in D5W MINI-BAG PLUS 50 ML IV SCH ×4 (03:10→19:36)
[2021-08-07 04:00] VITALS: BP 94/53
[2021-08-07] MEDS: clonazePAM 1 MG TAB PO PRN ×2 (04:18→19:48)
[2021-08-07] MEDS: LEVOTHYROXINE 100MCG TABLET (0.1MG) PO SCH (05:22)
[2021-08-07] MEDS: valACYclovir HCL 500 MG TAB PO SCH ×3 (05:23→21:06)
[2021-08-07] MEDS: ONDANSETRON 4MG/2ML VIAL IV PRN ×3 (05:23→19:36)
[2021-08-07 05:34] LABS: HEMATOCRIT 22.4 % (36.0-47.0); HEMOGLOBIN 7.4 g/dl (12.0-15.5); PLATELET COUNT, AUTOMATED 236 10^3/uL (150-450); RED BLOOD COUNT 2.31 10^6/uL (4.00-5.40); WHITE BLOOD COUNT 7.6 10^3/uL (4.0-10.0)
[2021-08-07 06:14] LABS: ALBUMIN 2.5 GM/DL (3.2-5.2); ALT/SGPT 54 U/L (12-78); BILIRUBIN,TOTAL 0.6 MG/DL (0.2-1.0); BLOOD UREA NITROGEN 12 MG/DL (7-18); CALCIUM LEVEL 8.6 MG/DL (8.8-10.2); CARBON DIOXIDE LEVEL 28 MEQ/L (21-32); CHLORIDE LEVEL 118 MEQ/L (98-107); GLOMERULAR FILTRATION RATE > 60.0 (>45); GLUCOSE, FASTING 88 MG/DL (70-100); POTASSIUM SERUM 4.1 MEQ/L (3.5-5.1); SODIUM LEVEL 147 MEQ/L (136-145); TOTAL PROTEIN 5.4 GM/DL (6.4-8.2)
[2021-08-07 06:22] LABS: INR 1.02; PROTHROMBIN TIME 13.8 SECONDS (12.7-14.5)
[2021-08-07 08:00] VITALS: BP 109/66
[2021-08-07] MEDS: MULTIVITAMINS/MINERALS THERAP 1 TAB PO SCH (08:36)
[2021-08-07] MEDS: PANTOPRAZOLE 40MG VIAL IV SCH (08:36)
[2021-08-07] MEDS: FOLIC ACID 1 MG TAB PO SCH (08:37)
[2021-08-07] MEDS: busPIRone 10 MG TAB PO SCH ×3 (08:37→21:06)
[2021-08-07] MEDS: POTASSIUM CHLORIDE 10MEQ SR TABLET PO SCH (08:37)
[2021-08-07] MEDS: CitaloPRAM (CeleXA) 20 MG TAB PO SCH (08:38)
[2021-08-07] MEDS: THIAMINE 100 MG TAB PO SCH (08:38)
[2021-08-07 12:00] VITALS: BP 114/58
[2021-08-07 16:00] VITALS: BP 146/78
[2021-08-07 20:00] VITALS: BP 134/66
[2021-08-07] MEDS: traZODone 50 MG TAB PO SCH (21:06)
[2021-08-07] MEDS: MIRTAZAPINE 15 MG TAB PO SCH (21:06)
[2021-08-07] MEDS: lamoTRIgine 100MG TAB PO SCH (21:06)
[2021-08-08] MEDS: PIPERACILLIN/TAZOBACTAM SOD 3.375 GM in D5W MINI-BAG PLUS 50 ML IV SCH ×4 (03:14→20:01)
[2021-08-08 04:00] VITALS: BP 98/50
[2021-08-08] MEDS: valACYclovir HCL 500 MG TAB PO SCH ×3 (06:01→21:19)
[2021-08-08] MEDS: LEVOTHYROXINE 100MCG TABLET (0.1MG) PO SCH (06:01)
[2021-08-08] MEDS: clonazePAM 1 MG TAB PO PRN ×2 (06:02→21:20)
[2021-08-08 06:05] LABS: HEMATOCRIT 22.5 % (36.0-47.0); HEMOGLOBIN 7.3 g/dl (12.0-15.5); MEAN CORPUSCULAR HEMOGLOBIN 32.4 pg (27.0-33.0); MEAN CORPUSCULAR HGB CONC 32.4 g/dl (32.0-36.5); PLATELET COUNT, AUTOMATED 279 10^3/uL (150-450); RED BLOOD COUNT 2.25 10^6/uL (4.00-5.40); WHITE BLOOD COUNT 8.3 10^3/uL (4.0-10.0)
[2021-08-08 06:19] LABS: INR 1.04
[2021-08-08 06:22] LABS: ALBUMIN 2.6 GM/DL (3.2-5.2); ALT/SGPT 45 U/L (12-78); BILIRUBIN,TOTAL 0.5 MG/DL (0.2-1.0); BLOOD UREA NITROGEN 9 MG/DL (7-18); CALCIUM LEVEL 8.6 MG/DL (8.8-10.2); CARBON DIOXIDE LEVEL 25 MEQ/L (21-32); CHLORIDE LEVEL 117 MEQ/L (98-107); CREATININE FOR GFR 0.99 MG/DL (0.55-1.30); GLOMERULAR FILTRATION RATE > 60.0 (>45); GLUCOSE, FASTING 85 MG/DL (70-100); MAGNESIUM LEVEL 1.9 MG/DL (1.8-2.4); PHOSPHORUS LEVEL 2.4 MG/DL (2.5-4.9); POTASSIUM SERUM 3.9 MEQ/L (3.5-5.1); SODIUM LEVEL 146 MEQ/L (136-145); TOTAL PROTEIN 5.4 GM/DL (6.4-8.2)
[2021-08-08 08:00] VITALS: BP 118/54
[2021-08-08] MEDS: MULTIVITAMINS/MINERALS THERAP 1 TAB PO SCH (09:48)
[2021-08-08] MEDS: FOLIC ACID 1 MG TAB PO SCH (09:48)
[2021-08-08] MEDS: PANTOPRAZOLE 40MG VIAL IV SCH (09:49)
[2021-08-08] MEDS: busPIRone 10 MG TAB PO SCH ×3 (09:49→20:01)
[2021-08-08] MEDS: CitaloPRAM (CeleXA) 20 MG TAB PO SCH (09:49)
[2021-08-08] MEDS: ONDANSETRON 4MG/2ML VIAL IV PRN (11:01)
[2021-08-08] MEDS ORDERED: LevoFLOXacin 750 MG TABLET PO SCH (11:15)
[2021-08-08 11:54] LABS: FERRITIN 199 NG/ML (8-252); IRON (FE) 48 UG/DL (50-170); PERCENT SATURATION 19.7 % (13.2-45.0); TOTAL IRON BINDING CAPACITY 244 UG/DL (250-450)
[2021-08-08 12:04] LABS: FOLATE > 24.0 NG/ML (>5.4); VITAMIN B12 LEVEL 412 PG/ML (247-911)
[2021-08-08 14:00] VITALS: BP 130/57
[2021-08-08] MEDS: HEPARIN SOD (PORCINE) 5000UNITS/ML 1ML VIAL/SYRINGE SQ SCH ×2 (15:58→21:20)
[2021-08-08] MEDS ORDERED: oxyCODONE 5MG TAB PO PRN (16:10)
[2021-08-08] MEDS: RAMELTEON 8 MG TAB (ROZEREM) PO SCH (20:01)
[2021-08-08] MEDS: lamoTRIgine 100MG TAB PO SCH (20:01)
[2021-08-08 20:08] VITALS: BP 128/58
[2021-08-09 00:11] VITALS: BP 128/58
[2021-08-09] MEDS: PERCOCET 5MG/325MG TAB PO PRN ×2 (02:01→20:49)
[2021-08-09] MEDS: PIPERACILLIN/TAZOBACTAM SOD 3.375 GM in D5W MINI-BAG PLUS 50 ML IV SCH ×4 (02:02→19:47)
[2021-08-09 04:00] VITALS: BP 128/58
[2021-08-09] MEDS: HEPARIN SOD (PORCINE) 5000UNITS/ML 1ML VIAL/SYRINGE SQ SCH ×3 (05:54→20:51)
[2021-08-09] MEDS: LEVOTHYROXINE 100MCG TABLET (0.1MG) PO SCH (05:54)
[2021-08-09] MEDS: valACYclovir HCL 500 MG TAB PO SCH ×3 (05:54→20:49)
[2021-08-09 05:55] LABS: HEMATOCRIT 22.5 % (36.0-47.0); HEMOGLOBIN 7.3 g/dl (12.0-15.5); MEAN CORPUSCULAR HEMOGLOBIN 32.9 pg (27.0-33.0); MEAN CORPUSCULAR HGB CONC 32.4 g/dl (32.0-36.5); MEAN CORPUSCULAR VOLUME 101.4 fl (80.0-96.0); PLATELET COUNT, AUTOMATED 277 10^3/uL (150-450); RED BLOOD COUNT 2.22 10^6/uL (4.00-5.40); WHITE BLOOD COUNT 6.3 10^3/uL (4.0-10.0)
[2021-08-09 06:00] VITALS: BP 96/43
[2021-08-09 06:06] LABS: INR 0.91; PROTHROMBIN TIME 12.7 SECONDS (12.7-14.5)
[2021-08-09 06:20] LABS: ALBUMIN 2.6 GM/DL (3.2-5.2); BILIRUBIN,TOTAL 0.4 MG/DL (0.2-1.0); CALCIUM LEVEL 8.9 MG/DL (8.8-10.2); CREATININE FOR GFR 1.03 MG/DL (0.55-1.30); GLOMERULAR FILTRATION RATE 58.2 (>45); POTASSIUM SERUM 3.8 MEQ/L (3.5-5.1); TOTAL PROTEIN 5.2 GM/DL (6.4-8.2)
[2021-08-09] MEDS: FOLIC ACID 1 MG TAB PO SCH (08:21)
[2021-08-09] MEDS: PANTOPRAZOLE 40MG TAB (PROTONIX) PO SCH (08:21)
[2021-08-09] MEDS: MULTIVITAMINS/MINERALS THERAP 1 TAB PO SCH (08:21)
[2021-08-09] MEDS: busPIRone 10 MG TAB PO SCH ×3 (08:21→20:49)
[2021-08-09] MEDS: CitaloPRAM (CeleXA) 20 MG TAB PO SCH (08:22)
[2021-08-09] MEDS: clonazePAM 1 MG TAB PO PRN ×2 (08:34→20:48)
[2021-08-09 14:00] VITALS: BP 127/66
[2021-08-09] MEDS ORDERED: LORazepam 2 MG/ML VIAL IV ONE (15:50)
[2021-08-09] MEDS ORDERED: ONDANSETRON 4MG/2ML VIAL IV ONE (16:10)
[2021-08-09 20:00] VITALS: BP 113/51
[2021-08-09] MEDS: RAMELTEON 8 MG TAB (ROZEREM) PO SCH (20:48)
[2021-08-09] MEDS: lamoTRIgine 100MG TAB PO SCH (20:49)
[2021-08-09] MEDS: ONDANSETRON 4MG ORAL DISINTEGRATING TAB PO PRN (20:50)
[2021-08-10] MEDS: PIPERACILLIN/TAZOBACTAM SOD 3.375 GM in D5W MINI-BAG PLUS 50 ML IV SCH ×3 (01:42→13:46)
[2021-08-10] MEDS: PERCOCET 5MG/325MG TAB PO PRN ×2 (03:33→17:49)
[2021-08-10] MEDS: HEPARIN SOD (PORCINE) 5000UNITS/ML 1ML VIAL/SYRINGE SQ SCH ×2 (05:07→13:46)
[2021-08-10] MEDS: valACYclovir HCL 500 MG TAB PO SCH ×3 (05:07→20:19)
[2021-08-10] MEDS: LEVOTHYROXINE 100MCG TABLET (0.1MG) PO SCH (05:07)
[2021-08-10] MEDS: ONDANSETRON 4MG ORAL DISINTEGRATING TAB PO PRN ×4 (05:08→20:19)
[2021-08-10 06:00] VITALS: BP 91/53
[2021-08-10] MEDS: FOLIC ACID 1 MG TAB PO SCH (08:21)
[2021-08-10] MEDS: MULTIVITAMINS/MINERALS THERAP 1 TAB PO SCH (08:22)
[2021-08-10] MEDS: busPIRone 10 MG TAB PO SCH ×3 (08:22→20:20)
[2021-08-10] MEDS: CitaloPRAM (CeleXA) 20 MG TAB PO SCH (08:22)
[2021-08-10] MEDS: PANTOPRAZOLE 40MG TAB (PROTONIX) PO SCH (08:23)
[2021-08-10 08:30] LABS: HEMATOCRIT 24.2 % (36.0-47.0); HEMOGLOBIN 7.6 g/dl (12.0-15.5); MEAN CORPUSCULAR HEMOGLOBIN 31.8 pg (27.0-33.0); MEAN CORPUSCULAR HGB CONC 31.4 g/dl (32.0-36.5); MEAN CORPUSCULAR VOLUME 101.3 fl (80.0-96.0); PLATELET COUNT, AUTOMATED 358 10^3/uL (150-450); RED BLOOD COUNT 2.39 10^6/uL (4.00-5.40)
[2021-08-10 08:38] LABS: INR 0.93; PROTHROMBIN TIME 12.9 SECONDS (12.7-14.5)
[2021-08-10 09:06] LABS: ALBUMIN 2.7 GM/DL (3.2-5.2); BILIRUBIN,TOTAL 0.3 MG/DL (0.2-1.0); CALCIUM LEVEL 9.1 MG/DL (8.8-10.2); CREATININE FOR GFR 1.02 MG/DL (0.55-1.30); GLOMERULAR FILTRATION RATE 58.8 (>45); MAGNESIUM LEVEL 2.3 MG/DL (1.8-2.4); PHOSPHORUS LEVEL 4.2 MG/DL (2.5-4.9); POTASSIUM SERUM 3.8 MEQ/L (3.5-5.1); TOTAL PROTEIN 5.6 GM/DL (6.4-8.2)
[2021-08-10 14:00] VITALS: BP 138/84
[2021-08-10] MEDS ORDERED: FOLI1TAB11 PO (17:25)
[2021-08-10] MEDS ORDERED: THIA100T7 PO (17:25)
[2021-08-10] MEDS ORDERED: VALA500T5 PO (17:25)
[2021-08-10] MEDS ORDERED: PANT40TA29 PO (17:28)
[2021-08-10] MEDS: RAMELTEON 8 MG TAB (ROZEREM) PO SCH (20:18)
[2021-08-10] MEDS: lamoTRIgine 100MG TAB PO SCH (20:19)
[2021-08-10] MEDS: clonazePAM 1 MG TAB PO PRN (20:27)
== END 2021-08-10 21:40 | DRG 917 ==
LOC: M ED 12:26 → M ED INP 16:25 → M ICU 19:23 → M MS5PR 08-08 12:03
PROVIDERS: ADMIT Family Medicine; ATTEND Internal Medicine
DX: T39.1X2A Poisoning by 4-Aminophenol derivatives, intentional self-harm, initial encounter (principal); J69.0 Pneumonitis due to inhalation of food and vomit; G92.8 Other toxic encephalopathy; K22.6 Gastro-esophageal laceration-hemorrhage syndrome; E87.2 Acidosis; E87.3 Alkalosis; K92.0 Hematemesis; E87.1 Hypo-osmolality and hyponatremia; E87.4 Mixed disorder of acid-base balance; F31.60 Bipolar disorder, current episode mixed, unspecified; S32.011S Stable burst fracture of first lumbar vertebra, sequela; Z91.51 Personal history of suicidal behavior; L40.50 Arthropathic psoriasis, unspecified; E03.9 Hypothyroidism, unspecified; Z88.5 Allergy status to narcotic agent; Z88.6 Allergy status to analgesic agent; Z88.8 Allergy status to other drugs, medicaments and biological substances; T68.XXXA Hypothermia, initial encounter; T14.91XA Suicide attempt, initial encounter; Z79.899 Other long term (current) drug therapy; Z20.822 Contact with and (suspected) exposure to COVID-19; F10.920 Alcohol use, unspecified with intoxication, uncomplicated; B02.9 Zoster without complications; R94.5 Abnormal results of liver function studies; E87.6 Hypokalemia; F43.10 Post-traumatic stress disorder, unspecified; F41.0 Panic disorder [episodic paroxysmal anxiety]

== ENCOUNTER 2021-08-10 18:19 | Inpatient (IN) | payer MEDICARE, OTHER ==
[~2021-08-10] VITALS: Ht 154.9 cm; Wt 61.3 kg
[~2021-08-10 18:19] MED LIST changes: +ACET1TAB55 PO; +B-COTAB10 PO; +BUSP10TA PO; +CELE20TA PO; +CLON1TAB8 PO; +DOCU100C16 PO; +FOLI1TAB11 PO; +IBUP-1022 PO; +LAMO200T3 PO; +METH-1164 PO; +MIRT-10 PO; +MULT400T10 PO; +PANT40TA29 PO; +SENN-83 PO; +THIA100T7 PO; +TRAZ1TAB14 PO; +VALA500T5 PO
[2021-08-10] MEDS ORDERED: MOM 30ML SUSPENSION UDC PO PRN (19:45)
[2021-08-10] MEDS ORDERED: PERCOCET 5MG/325MG TAB PO PRN (19:45)
[2021-08-10] MEDS ORDERED: oxyCODONE 5MG TAB PO PRN (19:45)
[2021-08-10] MEDS ORDERED: lamoTRIgine 100MG TAB PO SCH (21:00)
[2021-08-10 21:30] VITALS: BP 124/59
[2021-08-10] MEDS: valACYclovir HCL 500 MG TAB PO SCH (22:00)
[2021-08-10] MEDS: busPIRone 10 MG TAB PO SCH (22:47)
[2021-08-10] MEDS: RAMELTEON 8 MG TAB (ROZEREM) PO SCH (22:48)
[2021-08-11] MEDS: ONDANSETRON 4MG TAB PO PRN ×3 (02:24→16:28)
[2021-08-11] MEDS: valACYclovir HCL 500 MG TAB PO SCH ×3 (05:40→22:00)
[2021-08-11] MEDS: LEVOTHYROXINE 100MCG TABLET (0.1MG) PO SCH (05:40)
[2021-08-11] MEDS: MULTIVITAMINS/MINERALS THERAP 1 TAB PO SCH (09:00)
[2021-08-11] MEDS: FOLIC ACID 1 MG TAB PO SCH (09:49)
[2021-08-11] MEDS: PANTOPRAZOLE 40MG TAB (PROTONIX) PO SCH (09:49)
[2021-08-11] MEDS: CitaloPRAM (CeleXA) 20 MG TAB PO SCH (09:49)
[2021-08-11] MEDS: busPIRone 10 MG TAB PO SCH ×3 (09:49→20:08)
[2021-08-11 16:17] VITALS: BP 136/80
[2021-08-11] MEDS ORDERED: PILL CUTTER 1 EACH XX PRN (19:55)
[2021-08-11] MEDS: RAMELTEON 8 MG TAB (ROZEREM) PO SCH (20:09)
[2021-08-11] MEDS: lamoTRIgine 100MG TAB PO SCH (20:10)
[2021-08-11] MEDS: clonazePAM 0.5 MG TAB PO PRN (20:12)
[2021-08-12] MEDS: ONDANSETRON 4MG TAB PO PRN ×3 (00:02→21:01)
[2021-08-12] MEDS ORDERED: PERCOCET 5MG/325MG TAB PO PRN (01:10)
[2021-08-12] MEDS ORDERED: oxyCODONE 5MG TAB PO PRN (01:10)
[2021-08-12] MEDS: LEVOTHYROXINE 100MCG TABLET (0.1MG) PO SCH (05:12)
[2021-08-12] MEDS: valACYclovir HCL 500 MG TAB PO SCH ×3 (05:13→21:02)
[2021-08-12] MEDS: PANTOPRAZOLE 40MG TAB (PROTONIX) PO SCH ×2 (09:00→09:59)
[2021-08-12] MEDS: CitaloPRAM (CeleXA) 20 MG TAB PO SCH ×2 (09:00→09:59)
[2021-08-12] MEDS: FOLIC ACID 1 MG TAB PO SCH (09:00)
[2021-08-12] MEDS: busPIRone 10 MG TAB PO SCH ×4 (09:00→21:02)
[2021-08-12] MEDS: MULTIVITAMINS/MINERALS THERAP 1 TAB PO SCH (09:00)
[2021-08-12] MEDS: MAALOX 30 ML SUSP *UDC PO PRN (16:43)
[2021-08-12] MEDS: RAMELTEON 8 MG TAB (ROZEREM) PO SCH (21:01)
[2021-08-12] MEDS: lamoTRIgine 100MG TAB PO SCH (21:01)
[2021-08-12] MEDS: clonazePAM 0.5 MG TAB PO PRN (21:05)
[2021-08-13] MEDS: MAALOX 30 ML SUSP *UDC PO PRN (02:14)
[2021-08-13] MEDS: LEVOTHYROXINE 100MCG TABLET (0.1MG) PO SCH (06:21)
[2021-08-13] MEDS: valACYclovir HCL 500 MG TAB PO SCH ×3 (06:21→21:15)
[2021-08-13] MEDS: ONDANSETRON 4MG TAB PO PRN ×3 (06:22→21:13)
[2021-08-13 07:03] VITALS: BP 130/63
[2021-08-13] MEDS: MULTIVITAMINS/MINERALS THERAP 1 TAB PO SCH (09:00)
[2021-08-13] MEDS: FOLIC ACID 1 MG TAB PO SCH (09:00)
[2021-08-13] MEDS: PANTOPRAZOLE 40MG TAB (PROTONIX) PO SCH (10:03)
[2021-08-13] MEDS: busPIRone 10 MG TAB PO SCH ×3 (10:03→21:14)
[2021-08-13] MEDS: CitaloPRAM (CeleXA) 20 MG TAB PO SCH (10:03)
[2021-08-13] MEDS ORDERED: LOPERAMIDE 2 MG CAPLET PO PRN (10:40)
[2021-08-13] MEDS ORDERED: TUBERCULIN PPD 5 UNITS/0.1 ML ID ONE ×2 (10:50→11:00)
[2021-08-13 19:19] VITALS: BP 131/69
[2021-08-13] MEDS: clonazePAM 0.5 MG TAB PO PRN (21:14)
[2021-08-13] MEDS: lamoTRIgine 100MG TAB PO SCH (21:14)
[2021-08-13] MEDS: RAMELTEON 8 MG TAB (ROZEREM) PO SCH (21:15)
[2021-08-14] MEDS ORDERED: methocarbamoL 500 MG TAB PO PRN (01:20)
[2021-08-14] MEDS ORDERED: methocarbamoL 500 MG TAB As Ordered ONE (01:24)
[2021-08-14] MEDS: IBUPROFEN 600MG TAB PO PRN ×2 (01:25→07:53)
[2021-08-14] MEDS: LEVOTHYROXINE 100MCG TABLET (0.1MG) PO SCH (05:24)
[2021-08-14 06:49] VITALS: BP 105/56
[2021-08-14] MEDS: ONDANSETRON 4MG TAB PO PRN (07:57)
[2021-08-14] MEDS: FOLIC ACID 1 MG TAB PO SCH (09:00)
[2021-08-14] MEDS: MULTIVITAMINS/MINERALS THERAP 1 TAB PO SCH (09:00)
[2021-08-14] MEDS: clonazePAM 1 MG TAB PO SCH ×2 (09:14→20:45)
[2021-08-14] MEDS: PANTOPRAZOLE 40MG TAB (PROTONIX) PO SCH (09:14)
[2021-08-14] MEDS: busPIRone 10 MG TAB PO SCH ×3 (09:14→20:45)
[2021-08-14] MEDS: CitaloPRAM (CeleXA) 20 MG TAB PO SCH (09:14)
[2021-08-14] MEDS: CLOBETASOL PROPIONATE EMOLLIENT 0.05% CR 60 GM TOP SCH ×2 (09:58→20:45)
[2021-08-14 18:12] VITALS: BP 131/74
[2021-08-14] MEDS: lamoTRIgine 100MG TAB PO SCH (20:45)
[2021-08-14] MEDS: RAMELTEON 8 MG TAB (ROZEREM) PO SCH (20:45)
[2021-08-15] MEDS: clonazePAM 0.5 MG TAB PO PRN (01:01)
[2021-08-15] MEDS: IBUPROFEN 600MG TAB PO PRN (01:05)
[2021-08-15] MEDS: LEVOTHYROXINE 100MCG TABLET (0.1MG) PO SCH (05:30)
[2021-08-15 07:00] VITALS: BP 129/77
[2021-08-15] MEDS: ONDANSETRON 4MG TAB PO PRN (07:22)
[2021-08-15] MEDS: CLOBETASOL PROPIONATE EMOLLIENT 0.05% CR 60 GM TOP SCH ×2 (08:15→20:35)
[2021-08-15] MEDS: PANTOPRAZOLE 40MG TAB (PROTONIX) PO SCH (08:16)
[2021-08-15] MEDS: CitaloPRAM (CeleXA) 20 MG TAB PO SCH (08:16)
[2021-08-15] MEDS: busPIRone 10 MG TAB PO SCH ×3 (08:16→20:34)
[2021-08-15] MEDS: clonazePAM 1 MG TAB PO SCH ×2 (08:16→20:32)
[2021-08-15] MEDS ORDERED: PPD DOCUMENTATION ENTRY MISC XX SCH (10:00)
[2021-08-15] MEDS ORDERED: traZODone 50 MG TAB PO PRN (10:50)
[2021-08-15] MEDS ORDERED: methocarbamoL 500 MG TAB PO PRN (10:50)
[2021-08-15] MEDS ORDERED: PPD DOCUMENTATION ENTRY MISC XX ONE (11:00)
[2021-08-15] MEDS: MIRTAZAPINE 15 MG TAB PO SCH (20:33)
[2021-08-15] MEDS: lamoTRIgine 100MG TAB PO SCH (20:33)
[2021-08-15] MEDS: RAMELTEON 8 MG TAB (ROZEREM) PO SCH (20:33)
[2021-08-16] MEDS: LEVOTHYROXINE 100MCG TABLET (0.1MG) PO SCH (05:50)
[2021-08-16 06:38] VITALS: BP 119/64
[2021-08-16] MEDS ORDERED: TUBERCULIN PPD 5 UNITS/0.1 ML ID ONE ×2 (10:00)
[2021-08-16] MEDS: busPIRone 10 MG TAB PO SCH ×3 (10:11→20:12)
[2021-08-16] MEDS: clonazePAM 1 MG TAB PO SCH ×2 (10:11→20:13)
[2021-08-16] MEDS: CitaloPRAM (CeleXA) 20 MG TAB PO SCH (10:12)
[2021-08-16] MEDS: PANTOPRAZOLE 40MG TAB (PROTONIX) PO SCH (10:12)
[2021-08-16] MEDS: CLOBETASOL PROPIONATE EMOLLIENT 0.05% CR 60 GM TOP SCH ×2 (10:16→20:12)
[2021-08-16 15:48] VITALS: BP 112/53
[2021-08-16] MEDS: RAMELTEON 8 MG TAB (ROZEREM) PO SCH (20:13)
[2021-08-16] MEDS: MIRTAZAPINE 15 MG TAB PO SCH (20:13)
[2021-08-16] MEDS: lamoTRIgine 100MG TAB PO SCH (20:13)
[2021-08-16] MEDS: clonazePAM 0.5 MG TAB PO PRN (20:14)
[2021-08-17] MEDS: LEVOTHYROXINE 100MCG TABLET (0.1MG) PO SCH (05:39)
[2021-08-17 05:53] VITALS: BP 123/59
[2021-08-17] MEDS: CLOBETASOL PROPIONATE EMOLLIENT 0.05% CR 60 GM TOP SCH ×2 (09:00→20:32)
[2021-08-17] MEDS: busPIRone 10 MG TAB PO SCH ×3 (09:57→20:32)
[2021-08-17] MEDS: PANTOPRAZOLE 40MG TAB (PROTONIX) PO SCH (09:57)
[2021-08-17] MEDS: CitaloPRAM (CeleXA) 20 MG TAB PO SCH (09:57)
[2021-08-17] MEDS: clonazePAM 1 MG TAB PO SCH ×2 (09:57→20:30)
[2021-08-17] MEDS ORDERED: PPD DOCUMENTATION ENTRY MISC XX SCH (10:00)
[2021-08-17] MEDS ORDERED: ENBREL IM SCH (12:30)
[2021-08-17] MEDS ORDERED: clonazePAM 0.5 MG TAB PO ONE (14:00)
[2021-08-17 19:00] VITALS: BP 140/73
[2021-08-17] MEDS: RAMELTEON 8 MG TAB (ROZEREM) PO SCH (20:30)
[2021-08-17] MEDS: lamoTRIgine 100MG TAB PO SCH (20:31)
[2021-08-17] MEDS: MIRTAZAPINE 15 MG TAB PO SCH (20:31)
[2021-08-18] MEDS: LEVOTHYROXINE 100MCG TABLET (0.1MG) PO SCH (05:40)
[2021-08-18 06:57] VITALS: BP 107/52
[2021-08-18] MEDS: CLOBETASOL PROPIONATE EMOLLIENT 0.05% CR 60 GM TOP SCH ×2 (08:31→21:00)
[2021-08-18] MEDS: clonazePAM 1 MG TAB PO SCH ×2 (08:32→21:09)
[2021-08-18] MEDS: busPIRone 10 MG TAB PO SCH ×3 (08:32→21:09)
[2021-08-18] MEDS: PANTOPRAZOLE 40MG TAB (PROTONIX) PO SCH (08:32)
[2021-08-18] MEDS: CitaloPRAM (CeleXA) 20 MG TAB PO SCH (08:32)
[2021-08-18] MEDS ORDERED: PPD DOCUMENTATION ENTRY MISC XX ONE (10:00)
[2021-08-18 18:45] VITALS: BP 135/70
[2021-08-18 20:05] VITALS: BP 141/65
[2021-08-18] MEDS: MIRTAZAPINE 15 MG TAB PO SCH (21:09)
[2021-08-18] MEDS: RAMELTEON 8 MG TAB (ROZEREM) PO SCH (21:09)
[2021-08-18] MEDS: lamoTRIgine 100MG TAB PO SCH (21:09)
[2021-08-19] MEDS: LEVOTHYROXINE 100MCG TABLET (0.1MG) PO SCH (05:47)
[2021-08-19 07:05] VITALS: BP 108/59
[2021-08-19] MEDS: clonazePAM 1 MG TAB PO SCH ×2 (08:22→20:36)
[2021-08-19] MEDS: CLOBETASOL PROPIONATE EMOLLIENT 0.05% CR 60 GM TOP SCH ×2 (08:22→20:37)
[2021-08-19] MEDS: busPIRone 10 MG TAB PO SCH ×3 (08:23→20:37)
[2021-08-19] MEDS: CitaloPRAM (CeleXA) 20 MG TAB PO SCH (08:23)
[2021-08-19] MEDS: PANTOPRAZOLE 40MG TAB (PROTONIX) PO SCH (08:23)
[2021-08-19] MEDS: MIRALAX *UNIT DOSE* 17GM PACKET PO PRN (09:12)
[2021-08-19] MEDS ORDERED: BISACODYL 10 MG SUPP PR ONE (09:45)
[2021-08-19 18:38] VITALS: BP 127/70
[2021-08-19] MEDS: lamoTRIgine 100MG TAB PO SCH (20:37)
[2021-08-19] MEDS: RAMELTEON 8 MG TAB (ROZEREM) PO SCH (20:37)
[2021-08-19] MEDS: MIRTAZAPINE 15 MG TAB PO SCH (20:37)
[2021-08-20] MEDS: LEVOTHYROXINE 100MCG TABLET (0.1MG) PO SCH (05:58)
[2021-08-20 06:42] VITALS: BP 100/55
[2021-08-20] MEDS: CLOBETASOL PROPIONATE EMOLLIENT 0.05% CR 60 GM TOP SCH ×2 (09:00→20:29)
[2021-08-20] MEDS: clonazePAM 1 MG TAB PO SCH ×2 (09:44→20:29)
[2021-08-20] MEDS: busPIRone 10 MG TAB PO SCH ×3 (09:44→20:27)
[2021-08-20] MEDS: CitaloPRAM (CeleXA) 20 MG TAB PO SCH (09:44)
[2021-08-20] MEDS: PANTOPRAZOLE 40MG TAB (PROTONIX) PO SCH (09:44)
[2021-08-20] MEDS ORDERED: traZODone 100 MG TAB PO PRN (11:40)
[2021-08-20] MEDS: MIRALAX *UNIT DOSE* 17GM PACKET PO PRN (12:47)
[2021-08-20] MEDS ORDERED: BISACODYL 10 MG SUPP PR ONE (15:40)
[2021-08-20 16:49] VITALS: BP 106/56
[2021-08-20] MEDS ORDERED: LACTULOSE 20 GM/30 ML SYRUP UD PO ONE (17:00)
[2021-08-20] MEDS: MIRTAZAPINE 15 MG TAB PO SCH (20:26)
[2021-08-20] MEDS: RAMELTEON 8 MG TAB (ROZEREM) PO SCH (20:26)
[2021-08-20] MEDS: lamoTRIgine 100MG TAB PO SCH (20:27)
[2021-08-21] MEDS: LEVOTHYROXINE 100MCG TABLET (0.1MG) PO SCH (05:53)
[2021-08-21 06:36] VITALS: BP 115/57
[2021-08-21] MEDS: busPIRone 10 MG TAB PO SCH ×3 (10:44→20:45)
[2021-08-21] MEDS: CitaloPRAM (CeleXA) 20 MG TAB PO SCH (10:45)
[2021-08-21] MEDS: clonazePAM 1 MG TAB PO SCH ×2 (10:45→20:45)
[2021-08-21] MEDS: CLOBETASOL PROPIONATE EMOLLIENT 0.05% CR 60 GM TOP SCH ×2 (10:46→20:48)
[2021-08-21] MEDS: PANTOPRAZOLE 40MG TAB (PROTONIX) PO SCH (10:46)
[2021-08-21 18:00] VITALS: BP 106/56
[2021-08-21] MEDS: lamoTRIgine 100MG TAB PO SCH (20:45)
[2021-08-21] MEDS: MIRTAZAPINE 15 MG TAB PO SCH (20:45)
[2021-08-21] MEDS: RAMELTEON 8 MG TAB (ROZEREM) PO SCH (20:45)
[2021-08-22] MEDS: LEVOTHYROXINE 100MCG TABLET (0.1MG) PO SCH (05:34)
[2021-08-22] MEDS: clonazePAM 1 MG TAB PO SCH ×2 (09:01→20:43)
[2021-08-22] MEDS: busPIRone 10 MG TAB PO SCH ×3 (09:01→20:43)
[2021-08-22] MEDS: PANTOPRAZOLE 40MG TAB (PROTONIX) PO SCH (09:01)
[2021-08-22] MEDS: CitaloPRAM (CeleXA) 20 MG TAB PO SCH (09:01)
[2021-08-22] MEDS: CLOBETASOL PROPIONATE EMOLLIENT 0.05% CR 60 GM TOP SCH ×2 (09:03→20:42)
[2021-08-22] MEDS ORDERED: DOCUSATE SODIUM 100MG CAPSULE PO PRN (10:50)
[2021-08-22 11:22] LABS: ALBUMIN 3.4 GM/DL (3.2-5.2); ALT/SGPT 18 U/L (12-78); BILIRUBIN,TOTAL 0.2 MG/DL (0.2-1.0); BLOOD UREA NITROGEN 24 MG/DL (7-18); CALCIUM LEVEL 9.8 MG/DL (8.8-10.2); CARBON DIOXIDE LEVEL 27 MEQ/L (21-32); CHLORIDE LEVEL 111 MEQ/L (98-107); CREATININE FOR GFR 0.88 MG/DL (0.55-1.30); GLOMERULAR FILTRATION RATE > 60.0 (>45); GLUCOSE, FASTING 137 MG/DL (70-100); POTASSIUM SERUM 4.3 MEQ/L (3.5-5.1); SODIUM LEVEL 144 MEQ/L (136-145)
[2021-08-22 16:25] VITALS: BP 123/66
[2021-08-22] MEDS: MIRTAZAPINE 15 MG TAB PO SCH (20:43)
[2021-08-22] MEDS: lamoTRIgine 100MG TAB PO SCH (20:43)
[2021-08-22] MEDS: RAMELTEON 8 MG TAB (ROZEREM) PO SCH (20:43)
[2021-08-23] MEDS: LEVOTHYROXINE 100MCG TABLET (0.1MG) PO SCH (05:51)
[2021-08-23] MEDS: CitaloPRAM (CeleXA) 20 MG TAB PO SCH (09:23)
[2021-08-23] MEDS: CLOBETASOL PROPIONATE EMOLLIENT 0.05% CR 60 GM TOP SCH ×2 (09:23→20:29)
[2021-08-23] MEDS: busPIRone 10 MG TAB PO SCH ×3 (09:23→20:31)
[2021-08-23] MEDS: PANTOPRAZOLE 40MG TAB (PROTONIX) PO SCH (09:23)
[2021-08-23] MEDS: clonazePAM 1 MG TAB PO SCH ×2 (09:23→20:31)
[2021-08-23] MEDS: clonazePAM 0.5 MG TAB PO PRN (12:54)
[2021-08-23 18:27] VITALS: BP 128/70
[2021-08-23] MEDS: lamoTRIgine 100MG TAB PO SCH (20:31)
[2021-08-23] MEDS: RAMELTEON 8 MG TAB (ROZEREM) PO SCH (20:32)
[2021-08-23] MEDS: MIRTAZAPINE 15 MG TAB PO SCH (20:32)
[2021-08-24] MEDS: IBUPROFEN 600MG TAB PO PRN (04:25)
[2021-08-24] MEDS: LEVOTHYROXINE 100MCG TABLET (0.1MG) PO SCH (05:58)
[2021-08-24] MEDS: CLOBETASOL PROPIONATE EMOLLIENT 0.05% CR 60 GM TOP SCH ×2 (09:00→20:33)
[2021-08-24] MEDS: clonazePAM 1 MG TAB PO SCH ×2 (09:44→20:33)
[2021-08-24] MEDS: CitaloPRAM (CeleXA) 20 MG TAB PO SCH (09:44)
[2021-08-24] MEDS: PANTOPRAZOLE 40MG TAB (PROTONIX) PO SCH (09:44)
[2021-08-24] MEDS: busPIRone 10 MG TAB PO SCH ×3 (09:44→20:33)
[2021-08-24] MEDS: MIRALAX *UNIT DOSE* 17GM PACKET PO PRN (13:52)
[2021-08-24 16:14] VITALS: BP 127/63
[2021-08-24] MEDS: MIRTAZAPINE 15 MG TAB PO SCH (20:32)
[2021-08-24] MEDS: lamoTRIgine 100MG TAB PO SCH (20:33)
[2021-08-24] MEDS: RAMELTEON 8 MG TAB (ROZEREM) PO SCH (20:33)
[2021-08-25] MEDS: LEVOTHYROXINE 100MCG TABLET (0.1MG) PO SCH (05:49)
[2021-08-25] MEDS: clonazePAM 1 MG TAB PO SCH ×2 (07:57→20:36)
[2021-08-25] MEDS: CLOBETASOL PROPIONATE EMOLLIENT 0.05% CR 60 GM TOP SCH ×2 (07:57→20:37)
[2021-08-25] MEDS: PANTOPRAZOLE 40MG TAB (PROTONIX) PO SCH (07:58)
[2021-08-25] MEDS: busPIRone 10 MG TAB PO SCH ×3 (07:58→20:36)
[2021-08-25] MEDS: CitaloPRAM (CeleXA) 20 MG TAB PO SCH (07:58)
[2021-08-25 17:03] VITALS: BP 117/56
[2021-08-25] MEDS: MIRTAZAPINE 15 MG TAB PO SCH (20:35)
[2021-08-25] MEDS: lamoTRIgine 100MG TAB PO SCH (20:35)
[2021-08-25] MEDS: RAMELTEON 8 MG TAB (ROZEREM) PO SCH (20:35)
[2021-08-26] MEDS: LEVOTHYROXINE 100MCG TABLET (0.1MG) PO SCH (05:52)
[2021-08-26] MEDS: PANTOPRAZOLE 40MG TAB (PROTONIX) PO SCH (09:16)
[2021-08-26] MEDS: CLOBETASOL PROPIONATE EMOLLIENT 0.05% CR 60 GM TOP SCH ×2 (09:16→20:40)
[2021-08-26] MEDS: clonazePAM 1 MG TAB PO SCH ×2 (09:16→20:38)
[2021-08-26] MEDS: busPIRone 10 MG TAB PO SCH ×3 (09:16→20:38)
[2021-08-26] MEDS: CitaloPRAM (CeleXA) 20 MG TAB PO SCH (09:16)
[2021-08-26 16:38] VITALS: BP 118/63
[2021-08-26] MEDS: MIRTAZAPINE 15 MG TAB PO SCH (20:38)
[2021-08-26] MEDS: lamoTRIgine 100MG TAB PO SCH (20:38)
[2021-08-26] MEDS: RAMELTEON 8 MG TAB (ROZEREM) PO SCH (20:38)
[2021-08-27] MEDS: LEVOTHYROXINE 100MCG TABLET (0.1MG) PO SCH (06:05)
[2021-08-27] MEDS: busPIRone 10 MG TAB PO SCH ×3 (08:07→20:24)
[2021-08-27] MEDS: CitaloPRAM (CeleXA) 20 MG TAB PO SCH (08:07)
[2021-08-27] MEDS: clonazePAM 1 MG TAB PO SCH ×2 (08:07→20:24)
[2021-08-27] MEDS: PANTOPRAZOLE 40MG TAB (PROTONIX) PO SCH (08:07)
[2021-08-27] MEDS: CLOBETASOL PROPIONATE EMOLLIENT 0.05% CR 60 GM TOP SCH ×2 (08:07→20:24)
[2021-08-27 18:52] VITALS: BP 144/78
[2021-08-27] MEDS: MIRTAZAPINE 15 MG TAB PO SCH (20:24)
[2021-08-27] MEDS: RAMELTEON 8 MG TAB (ROZEREM) PO SCH (20:24)
[2021-08-27] MEDS: lamoTRIgine 100MG TAB PO SCH (20:26)
[2021-08-28] MEDS: LEVOTHYROXINE 100MCG TABLET (0.1MG) PO SCH (05:46)
[2021-08-28] MEDS: CitaloPRAM (CeleXA) 20 MG TAB PO SCH (08:10)
[2021-08-28] MEDS: PANTOPRAZOLE 40MG TAB (PROTONIX) PO SCH (08:10)
[2021-08-28] MEDS: busPIRone 10 MG TAB PO SCH ×3 (08:10→21:08)
[2021-08-28] MEDS: clonazePAM 1 MG TAB PO SCH ×2 (08:10→21:07)
[2021-08-28] MEDS: CLOBETASOL PROPIONATE EMOLLIENT 0.05% CR 60 GM TOP SCH ×2 (08:10→21:09)
[2021-08-28 17:53] VITALS: BP 121/62
[2021-08-28] MEDS: RAMELTEON 8 MG TAB (ROZEREM) PO SCH (21:07)
[2021-08-28] MEDS: LITHIUM CARBONATE 150 MG CAP PO SCH (21:07)
[2021-08-28] MEDS: lamoTRIgine 100MG TAB PO SCH (21:07)
[2021-08-28] MEDS: MIRTAZAPINE 15 MG TAB PO SCH (21:07)
[2021-08-29] MEDS: LEVOTHYROXINE 100MCG TABLET (0.1MG) PO SCH (05:38)
[2021-08-29] MEDS: PANTOPRAZOLE 40MG TAB (PROTONIX) PO SCH (08:32)
[2021-08-29] MEDS: clonazePAM 1 MG TAB PO SCH ×2 (08:32→20:33)
[2021-08-29] MEDS: busPIRone 10 MG TAB PO SCH ×3 (08:32→20:33)
[2021-08-29] MEDS: CitaloPRAM (CeleXA) 20 MG TAB PO SCH (08:32)
[2021-08-29] MEDS: CLOBETASOL PROPIONATE EMOLLIENT 0.05% CR 60 GM TOP SCH ×2 (08:34→20:36)
[2021-08-29 16:37] VITALS: BP 105/53
[2021-08-29] MEDS: RAMELTEON 8 MG TAB (ROZEREM) PO SCH (20:32)
[2021-08-29] MEDS: MIRTAZAPINE 15 MG TAB PO SCH (20:33)
[2021-08-29] MEDS: lamoTRIgine 100MG TAB PO SCH (20:33)
[2021-08-29] MEDS: LITHIUM CARBONATE 150 MG CAP PO SCH (20:33)
[2021-08-30] MEDS: LEVOTHYROXINE 100MCG TABLET (0.1MG) PO SCH (05:24)
[2021-08-30] MEDS: PANTOPRAZOLE 40MG TAB (PROTONIX) PO SCH (09:39)
[2021-08-30] MEDS: CLOBETASOL PROPIONATE EMOLLIENT 0.05% CR 60 GM TOP SCH ×2 (09:39→20:54)
[2021-08-30] MEDS: clonazePAM 1 MG TAB PO SCH ×2 (09:39→20:54)
[2021-08-30] MEDS: busPIRone 10 MG TAB PO SCH ×3 (09:39→20:54)
[2021-08-30] MEDS: CitaloPRAM (CeleXA) 20 MG TAB PO SCH (09:39)
[2021-08-30] MEDS: ONDANSETRON 4MG TAB PO PRN (15:08)
[2021-08-30] MEDS: RAMELTEON 8 MG TAB (ROZEREM) PO SCH (20:54)
[2021-08-30] MEDS: MIRTAZAPINE 15 MG TAB PO SCH (20:54)
[2021-08-30] MEDS: lamoTRIgine 100MG TAB PO SCH (20:54)
[2021-08-30] MEDS: LITHIUM CARBONATE 150 MG CAP PO SCH (20:54)
[2021-08-31] MEDS: LEVOTHYROXINE 100MCG TABLET (0.1MG) PO SCH (05:51)
[2021-08-31] MEDS: busPIRone 10 MG TAB PO SCH ×3 (08:22→20:29)
[2021-08-31] MEDS: CLOBETASOL PROPIONATE EMOLLIENT 0.05% CR 60 GM TOP SCH ×2 (08:22→20:29)
[2021-08-31] MEDS: clonazePAM 1 MG TAB PO SCH ×2 (08:22→20:28)
[2021-08-31] MEDS: PANTOPRAZOLE 40MG TAB (PROTONIX) PO SCH (08:22)
[2021-08-31] MEDS: CitaloPRAM (CeleXA) 20 MG TAB PO SCH (08:22)
[2021-08-31 18:33] VITALS: BP 132/80
[2021-08-31] MEDS: lamoTRIgine 100MG TAB PO SCH (20:28)
[2021-08-31] MEDS: RAMELTEON 8 MG TAB (ROZEREM) PO SCH (20:28)
[2021-08-31] MEDS: MIRTAZAPINE 15 MG TAB PO SCH (20:28)
[2021-08-31] MEDS: LITHIUM CARBONATE 150 MG CAP PO SCH (20:29)
[2021-09-01] MEDS: LEVOTHYROXINE 100MCG TABLET (0.1MG) PO SCH (05:41)
[2021-09-01] MEDS: CLOBETASOL PROPIONATE EMOLLIENT 0.05% CR 60 GM TOP SCH ×2 (09:23→20:40)
[2021-09-01] MEDS: PANTOPRAZOLE 40MG TAB (PROTONIX) PO SCH (09:23)
[2021-09-01] MEDS: CitaloPRAM (CeleXA) 20 MG TAB PO SCH (09:23)
[2021-09-01] MEDS: busPIRone 10 MG TAB PO SCH ×3 (09:24→20:41)
[2021-09-01] MEDS: clonazePAM 1 MG TAB PO SCH ×2 (09:24→20:41)
[2021-09-01 18:14] VITALS: BP 130/63
[2021-09-01] MEDS: RAMELTEON 8 MG TAB (ROZEREM) PO SCH (20:40)
[2021-09-01] MEDS: MIRTAZAPINE 15 MG TAB PO SCH (20:41)
[2021-09-01] MEDS: lamoTRIgine 100MG TAB PO SCH (20:41)
[2021-09-01] MEDS: LITHIUM CARBONATE 150 MG CAP PO SCH (20:41)
[2021-09-02] MEDS: LEVOTHYROXINE 100MCG TABLET (0.1MG) PO SCH (05:35)
[2021-09-02] MEDS: CLOBETASOL PROPIONATE EMOLLIENT 0.05% CR 60 GM TOP SCH ×2 (08:27→20:41)
[2021-09-02] MEDS: CitaloPRAM (CeleXA) 20 MG TAB PO SCH (08:27)
[2021-09-02] MEDS: PANTOPRAZOLE 40MG TAB (PROTONIX) PO SCH (08:28)
[2021-09-02] MEDS: clonazePAM 1 MG TAB PO SCH ×2 (08:28→20:38)
[2021-09-02] MEDS: busPIRone 10 MG TAB PO SCH ×3 (08:28→20:38)
[2021-09-02 11:09] LABS: ALBUMIN 3.3 GM/DL (3.2-5.2); ALT/SGPT 18 U/L (12-78); BILIRUBIN,TOTAL 0.2 MG/DL (0.2-1.0); BLOOD UREA NITROGEN 25 MG/DL (7-18); CALCIUM LEVEL 9.6 MG/DL (8.8-10.2); CARBON DIOXIDE LEVEL 32 MEQ/L (21-32); CHLORIDE LEVEL 110 MEQ/L (98-107); CREATININE FOR GFR 0.93 MG/DL (0.55-1.30); GLOMERULAR FILTRATION RATE > 60.0 (>45); GLUCOSE, FASTING 96 MG/DL (70-100); POTASSIUM SERUM 4.4 MEQ/L (3.5-5.1); SODIUM LEVEL 144 MEQ/L (136-145); TOTAL PROTEIN 5.9 GM/DL (6.4-8.2)
[2021-09-02 18:17] VITALS: BP 120/58
[2021-09-02] MEDS: LITHIUM CARBONATE 150 MG CAP PO SCH (20:38)
[2021-09-02] MEDS: RAMELTEON 8 MG TAB (ROZEREM) PO SCH (20:38)
[2021-09-02] MEDS: MIRTAZAPINE 15 MG TAB PO SCH (20:38)
[2021-09-02] MEDS: lamoTRIgine 100MG TAB PO SCH (20:38)
[2021-09-03] MEDS: LEVOTHYROXINE 100MCG TABLET (0.1MG) PO SCH (05:59)
[2021-09-03] MEDS: CitaloPRAM (CeleXA) 20 MG TAB PO SCH (08:52)
[2021-09-03] MEDS: CLOBETASOL PROPIONATE EMOLLIENT 0.05% CR 60 GM TOP SCH ×2 (08:52→20:45)
[2021-09-03] MEDS: PANTOPRAZOLE 40MG TAB (PROTONIX) PO SCH (08:52)
[2021-09-03] MEDS: clonazePAM 1 MG TAB PO SCH ×2 (08:52→20:43)
[2021-09-03] MEDS: busPIRone 10 MG TAB PO SCH ×3 (08:52→20:43)
[2021-09-03 16:13] VITALS: BP 133/60
[2021-09-03] MEDS: RAMELTEON 8 MG TAB (ROZEREM) PO SCH (20:42)
[2021-09-03] MEDS: MIRTAZAPINE 15 MG TAB PO SCH (20:42)
[2021-09-03] MEDS: LITHIUM CARBONATE 150 MG CAP PO SCH (20:42)
[2021-09-03] MEDS: lamoTRIgine 100MG TAB PO SCH (20:42)
[2021-09-04] MEDS: LEVOTHYROXINE 100MCG TABLET (0.1MG) PO SCH (05:50)
[2021-09-04] MEDS: CLOBETASOL PROPIONATE EMOLLIENT 0.05% CR 60 GM TOP SCH ×2 (09:00→20:32)
[2021-09-04] MEDS: PANTOPRAZOLE 40MG TAB (PROTONIX) PO SCH (09:41)
[2021-09-04] MEDS: clonazePAM 1 MG TAB PO SCH ×2 (09:41→20:32)
[2021-09-04] MEDS: CitaloPRAM (CeleXA) 20 MG TAB PO SCH (09:41)
[2021-09-04] MEDS: busPIRone 10 MG TAB PO SCH ×3 (09:41→20:33)
[2021-09-04 17:14] VITALS: BP 142/72
[2021-09-04] MEDS: RAMELTEON 8 MG TAB (ROZEREM) PO SCH (20:32)
[2021-09-04] MEDS: MIRTAZAPINE 15 MG TAB PO SCH (20:33)
[2021-09-04] MEDS: LITHIUM CARBONATE 150 MG CAP PO SCH (20:33)
[2021-09-04] MEDS: lamoTRIgine 100MG TAB PO SCH (20:33)
[2021-09-05] MEDS: LEVOTHYROXINE 100MCG TABLET (0.1MG) PO SCH (05:56)
[2021-09-05] MEDS: PANTOPRAZOLE 40MG TAB (PROTONIX) PO SCH (07:56)
[2021-09-05] MEDS: CitaloPRAM (CeleXA) 20 MG TAB PO SCH (07:56)
[2021-09-05] MEDS: clonazePAM 1 MG TAB PO SCH ×2 (07:56→20:21)
[2021-09-05] MEDS: busPIRone 10 MG TAB PO SCH ×3 (07:56→20:21)
[2021-09-05] MEDS: CLOBETASOL PROPIONATE EMOLLIENT 0.05% CR 60 GM TOP SCH ×2 (07:56→20:21)
[2021-09-05 17:24] VITALS: BP 140/65
[2021-09-05] MEDS: RAMELTEON 8 MG TAB (ROZEREM) PO SCH (20:20)
[2021-09-05] MEDS: LITHIUM CARBONATE 150 MG CAP PO SCH (20:21)
[2021-09-05] MEDS: lamoTRIgine 100MG TAB PO SCH (20:22)
[2021-09-05] MEDS: MIRTAZAPINE 15 MG TAB PO SCH (20:22)
[2021-09-06] MEDS: LEVOTHYROXINE 100MCG TABLET (0.1MG) PO SCH (05:45)
[2021-09-06] MEDS: clonazePAM 1 MG TAB PO SCH ×2 (08:23→21:19)
[2021-09-06] MEDS: PANTOPRAZOLE 40MG TAB (PROTONIX) PO SCH (08:24)
[2021-09-06] MEDS: busPIRone 10 MG TAB PO SCH ×3 (08:24→21:20)
[2021-09-06] MEDS: CitaloPRAM (CeleXA) 20 MG TAB PO SCH (08:24)
[2021-09-06] MEDS: CLOBETASOL PROPIONATE EMOLLIENT 0.05% CR 60 GM TOP SCH ×2 (08:43→21:20)
[2021-09-06 18:00] VITALS: BP 128/73
[2021-09-06] MEDS: MIRTAZAPINE 15 MG TAB PO SCH (21:18)
[2021-09-06] MEDS: RAMELTEON 8 MG TAB (ROZEREM) PO SCH (21:18)
[2021-09-06] MEDS: lamoTRIgine 100MG TAB PO SCH (21:19)
[2021-09-06] MEDS: LITHIUM CARBONATE 150 MG CAP PO SCH (21:19)
[2021-09-07] MEDS: LEVOTHYROXINE 100MCG TABLET (0.1MG) PO SCH (05:49)
[2021-09-07] MEDS: busPIRone 10 MG TAB PO SCH ×3 (08:40→20:38)
[2021-09-07] MEDS: PANTOPRAZOLE 40MG TAB (PROTONIX) PO SCH (08:40)
[2021-09-07] MEDS: clonazePAM 1 MG TAB PO SCH ×2 (08:41→20:38)
[2021-09-07] MEDS: CLOBETASOL PROPIONATE EMOLLIENT 0.05% CR 60 GM TOP SCH ×2 (08:41→21:00)
[2021-09-07] MEDS: CitaloPRAM (CeleXA) 20 MG TAB PO SCH (08:41)
[2021-09-07 17:37] VITALS: BP 115/58
[2021-09-07] MEDS: RAMELTEON 8 MG TAB (ROZEREM) PO SCH (20:37)
[2021-09-07] MEDS: LITHIUM CARBONATE 150 MG CAP PO SCH (20:37)
[2021-09-07] MEDS: MIRTAZAPINE 15 MG TAB PO SCH (20:37)
[2021-09-07] MEDS: lamoTRIgine 100MG TAB PO SCH (20:38)
[2021-09-08] MEDS: LEVOTHYROXINE 100MCG TABLET (0.1MG) PO SCH (05:09)
[2021-09-08] MEDS: busPIRone 10 MG TAB PO SCH ×3 (08:30→20:38)
[2021-09-08] MEDS: PANTOPRAZOLE 40MG TAB (PROTONIX) PO SCH (08:30)
[2021-09-08] MEDS: CLOBETASOL PROPIONATE EMOLLIENT 0.05% CR 60 GM TOP SCH ×2 (08:30→20:39)
[2021-09-08] MEDS: clonazePAM 1 MG TAB PO SCH ×2 (08:30→20:38)
[2021-09-08] MEDS: CitaloPRAM (CeleXA) 20 MG TAB PO SCH (08:30)
[2021-09-08 16:03] VITALS: BP 133/65
[2021-09-08] MEDS: MIRTAZAPINE 15 MG TAB PO SCH (20:38)
[2021-09-08] MEDS: RAMELTEON 8 MG TAB (ROZEREM) PO SCH (20:38)
[2021-09-08] MEDS: LITHIUM CARBONATE 150 MG CAP PO SCH (20:38)
[2021-09-08] MEDS: lamoTRIgine 100MG TAB PO SCH (20:38)
[2021-09-09] MEDS: LEVOTHYROXINE 100MCG TABLET (0.1MG) PO SCH (05:39)
[2021-09-09] MEDS: CitaloPRAM (CeleXA) 20 MG TAB PO SCH (08:50)
[2021-09-09] MEDS: clonazePAM 1 MG TAB PO SCH ×2 (08:50→21:17)
[2021-09-09] MEDS: PANTOPRAZOLE 40MG TAB (PROTONIX) PO SCH (08:50)
[2021-09-09] MEDS: busPIRone 10 MG TAB PO SCH ×3 (08:50→21:17)
[2021-09-09] MEDS: CLOBETASOL PROPIONATE EMOLLIENT 0.05% CR 60 GM TOP SCH ×2 (08:51→21:17)
[2021-09-09 15:39] VITALS: BP 121/56
[2021-09-09] MEDS: lamoTRIgine 100MG TAB PO SCH (21:17)
[2021-09-09] MEDS: RAMELTEON 8 MG TAB (ROZEREM) PO SCH (21:17)
[2021-09-09] MEDS: MIRTAZAPINE 15 MG TAB PO SCH (21:18)
[2021-09-09] MEDS: LITHIUM CARBONATE 150 MG CAP PO SCH (21:18)
[2021-09-10] MEDS: LEVOTHYROXINE 100MCG TABLET (0.1MG) PO SCH (05:41)
[2021-09-10] MEDS: PANTOPRAZOLE 40MG TAB (PROTONIX) PO SCH (08:23)
[2021-09-10] MEDS: busPIRone 10 MG TAB PO SCH ×3 (08:24→20:57)
[2021-09-10] MEDS: CitaloPRAM (CeleXA) 20 MG TAB PO SCH (08:24)
[2021-09-10] MEDS: clonazePAM 1 MG TAB PO SCH ×2 (08:24→20:58)
[2021-09-10] MEDS: CLOBETASOL PROPIONATE EMOLLIENT 0.05% CR 60 GM TOP SCH ×2 (08:25→20:57)
[2021-09-10 19:21] VITALS: BP 125/70
[2021-09-10] MEDS: RAMELTEON 8 MG TAB (ROZEREM) PO SCH (20:57)
[2021-09-10] MEDS: MIRTAZAPINE 15 MG TAB PO SCH (20:57)
[2021-09-10] MEDS: LITHIUM CARBONATE 150 MG CAP PO SCH (20:57)
[2021-09-10] MEDS: lamoTRIgine 100MG TAB PO SCH (20:58)
[2021-09-11] MEDS: LEVOTHYROXINE 100MCG TABLET (0.1MG) PO SCH (05:35)
[2021-09-11] MEDS: busPIRone 10 MG TAB PO SCH ×3 (08:29→20:42)
[2021-09-11] MEDS: PANTOPRAZOLE 40MG TAB (PROTONIX) PO SCH (08:29)
[2021-09-11] MEDS: clonazePAM 1 MG TAB PO SCH ×2 (08:29→20:43)
[2021-09-11] MEDS: CitaloPRAM (CeleXA) 20 MG TAB PO SCH (08:30)
[2021-09-11] MEDS: CLOBETASOL PROPIONATE EMOLLIENT 0.05% CR 60 GM TOP SCH ×2 (08:30→20:42)
[2021-09-11 14:08] LABS: CALCIUM LEVEL 9.8 MG/DL (8.8-10.2); CREATININE FOR GFR 1.04 MG/DL (0.55-1.30); GLOMERULAR FILTRATION RATE 57.5 (>45); POTASSIUM SERUM 4.5 MEQ/L (3.5-5.1)
[2021-09-11 19:20] VITALS: BP 127/68
[2021-09-11] MEDS: LITHIUM CARBONATE 150 MG CAP PO SCH (20:42)
[2021-09-11] MEDS: lamoTRIgine 100MG TAB PO SCH (20:42)
[2021-09-11] MEDS: RAMELTEON 8 MG TAB (ROZEREM) PO SCH (20:42)
[2021-09-11] MEDS: MIRTAZAPINE 15 MG TAB PO SCH (20:43)
[2021-09-12] MEDS: LEVOTHYROXINE 100MCG TABLET (0.1MG) PO SCH (05:39)
[2021-09-12] MEDS: CLOBETASOL PROPIONATE EMOLLIENT 0.05% CR 60 GM TOP SCH ×2 (09:00→20:54)
[2021-09-12] MEDS: CitaloPRAM (CeleXA) 20 MG TAB PO SCH (09:18)
[2021-09-12] MEDS: clonazePAM 1 MG TAB PO SCH ×2 (09:18→20:57)
[2021-09-12] MEDS: PANTOPRAZOLE 40MG TAB (PROTONIX) PO SCH (09:18)
[2021-09-12] MEDS: busPIRone 10 MG TAB PO SCH ×3 (09:18→20:56)
[2021-09-12 17:57] VITALS: BP 116/65
[2021-09-12] MEDS: RAMELTEON 8 MG TAB (ROZEREM) PO SCH (20:56)
[2021-09-12] MEDS: MIRTAZAPINE 15 MG TAB PO SCH (20:57)
[2021-09-12] MEDS: LITHIUM CARBONATE 150 MG CAP PO SCH (20:57)
[2021-09-12] MEDS: lamoTRIgine 100MG TAB PO SCH (20:57)
[2021-09-13] MEDS: LEVOTHYROXINE 100MCG TABLET (0.1MG) PO SCH (05:22)
[2021-09-13] MEDS: CLOBETASOL PROPIONATE EMOLLIENT 0.05% CR 60 GM TOP SCH ×2 (09:00→20:45)
[2021-09-13] MEDS: clonazePAM 1 MG TAB PO SCH ×2 (09:14→20:46)
[2021-09-13] MEDS: busPIRone 10 MG TAB PO SCH ×3 (09:15→20:46)
[2021-09-13] MEDS: CitaloPRAM (CeleXA) 20 MG TAB PO SCH (09:15)
[2021-09-13] MEDS: PANTOPRAZOLE 40MG TAB (PROTONIX) PO SCH (09:15)
[2021-09-13] MEDS: lamoTRIgine 100MG TAB PO SCH (20:45)
[2021-09-13] MEDS: RAMELTEON 8 MG TAB (ROZEREM) PO SCH (20:45)
[2021-09-13] MEDS: LITHIUM CARBONATE 150 MG CAP PO SCH (20:46)
[2021-09-13] MEDS: MIRTAZAPINE 15 MG TAB PO SCH (20:46)
[2021-09-14] MEDS: LEVOTHYROXINE 100MCG TABLET (0.1MG) PO SCH (05:38)
[2021-09-14] MEDS: CLOBETASOL PROPIONATE EMOLLIENT 0.05% CR 60 GM TOP SCH ×2 (08:19→20:47)
[2021-09-14] MEDS: PANTOPRAZOLE 40MG TAB (PROTONIX) PO SCH (08:20)
[2021-09-14] MEDS: busPIRone 10 MG TAB PO SCH ×3 (08:20→20:46)
[2021-09-14] MEDS: clonazePAM 1 MG TAB PO SCH ×2 (08:20→20:46)
[2021-09-14] MEDS: CitaloPRAM (CeleXA) 20 MG TAB PO SCH (08:20)
[2021-09-14 18:00] VITALS: BP 145/67
[2021-09-14] MEDS: lamoTRIgine 100MG TAB PO SCH (20:45)
[2021-09-14] MEDS: LITHIUM CARBONATE 150 MG CAP PO SCH (20:46)
[2021-09-14] MEDS: RAMELTEON 8 MG TAB (ROZEREM) PO SCH (20:46)
[2021-09-14] MEDS: MIRTAZAPINE 15 MG TAB PO SCH (20:46)
[2021-09-15] MEDS: LEVOTHYROXINE 100MCG TABLET (0.1MG) PO SCH (06:09)
[2021-09-15] MEDS: CLOBETASOL PROPIONATE EMOLLIENT 0.05% CR 60 GM TOP SCH ×2 (08:42→20:21)
[2021-09-15] MEDS: clonazePAM 1 MG TAB PO SCH ×2 (08:42→20:21)
[2021-09-15] MEDS: busPIRone 10 MG TAB PO SCH ×3 (08:42→20:21)
[2021-09-15] MEDS: CitaloPRAM (CeleXA) 20 MG TAB PO SCH (08:42)
[2021-09-15] MEDS: PANTOPRAZOLE 40MG TAB (PROTONIX) PO SCH (08:42)
[2021-09-15 18:00] VITALS: BP 128/72
[2021-09-15] MEDS: RAMELTEON 8 MG TAB (ROZEREM) PO SCH (20:21)
[2021-09-15] MEDS: MIRTAZAPINE 15 MG TAB PO SCH (20:21)
[2021-09-15] MEDS: LITHIUM CARBONATE 150 MG CAP PO SCH (20:21)
[2021-09-15] MEDS: lamoTRIgine 100MG TAB PO SCH (20:21)
[2021-09-16] MEDS: LEVOTHYROXINE 100MCG TABLET (0.1MG) PO SCH (05:40)
[2021-09-16] MEDS: CitaloPRAM (CeleXA) 20 MG TAB PO SCH (08:11)
[2021-09-16] MEDS: PANTOPRAZOLE 40MG TAB (PROTONIX) PO SCH (08:11)
[2021-09-16] MEDS: clonazePAM 1 MG TAB PO SCH ×2 (08:11→20:02)
[2021-09-16] MEDS: busPIRone 10 MG TAB PO SCH ×3 (08:11→20:03)
[2021-09-16] MEDS: CLOBETASOL PROPIONATE EMOLLIENT 0.05% CR 60 GM TOP SCH ×2 (08:11→20:03)
[2021-09-16 18:00] VITALS: BP 136/59
[2021-09-16] MEDS ORDERED: KETOROLAC TROMETHAMINE 10 MG TAB PO PRN (19:25)
[2021-09-16] MEDS: clonazePAM 0.5 MG TAB PO PRN (19:29)
[2021-09-16] MEDS: ACETAMINOPHEN TAB 650MG DOSE (2X325MG) PO PRN (19:29)
[2021-09-16] MEDS: lamoTRIgine 100MG TAB PO SCH (20:02)
[2021-09-16] MEDS: LITHIUM CARBONATE 150 MG CAP PO SCH (20:02)
[2021-09-16] MEDS: RAMELTEON 8 MG TAB (ROZEREM) PO SCH (20:02)
[2021-09-16] MEDS: MIRTAZAPINE 15 MG TAB PO SCH (20:03)
[2021-09-16 20:05] VITALS: BP 162/92
[2021-09-16] MEDS: DOCUSATE SODIUM 100MG CAPSULE PO SCH (21:18)
[2021-09-17] MEDS: LEVOTHYROXINE 100MCG TABLET (0.1MG) PO SCH (05:01)
[2021-09-17] MEDS: ACETAMINOPHEN TAB 650MG DOSE (2X325MG) PO PRN (05:04)
[2021-09-17] MEDS: DOCUSATE SODIUM 100MG CAPSULE PO SCH ×2 (08:25→20:22)
[2021-09-17] MEDS: clonazePAM 1 MG TAB PO SCH ×2 (08:26→20:20)
[2021-09-17] MEDS: busPIRone 10 MG TAB PO SCH ×3 (08:26→20:21)
[2021-09-17] MEDS: PANTOPRAZOLE 40MG TAB (PROTONIX) PO SCH (08:26)
[2021-09-17] MEDS: CitaloPRAM (CeleXA) 20 MG TAB PO SCH (08:26)
[2021-09-17] MEDS: CLOBETASOL PROPIONATE EMOLLIENT 0.05% CR 60 GM TOP SCH ×2 (08:27→20:22)
[2021-09-17 08:55] LABS: BASO # 0.1 10^3/uL (0.0-0.2); BASO % 0.8 % (0.0-1.0); EOS # 0.3 10^3/uL (0.0-0.5); EOS % 3.8 % (0.0-3.0); HEMATOCRIT 37.5 % (36.0-47.0); HEMOGLOBIN 11.6 g/dl (12.0-15.5); LYMPH # 2.4 10^3/uL (1.5-5.0); LYMPH % 32.6 % (24.0-44.0); MEAN CORPUSCULAR HGB CONC 30.9 g/dl (32.0-36.5); MEAN CORPUSCULAR VOLUME 100.3 fl (80.0-96.0); MONO # 0.6 10^3/uL (0.0-0.8); MONO % 8.3 % (2.0-8.0); NEUTROPHILS # 3.9 10^3/uL (1.5-8.5); NEUTROPHILS % 53.8 % (36.0-66.0); PLATELET COUNT, AUTOMATED 360 10^3/uL (150-450); RED BLOOD COUNT 3.74 10^6/uL (4.00-5.40); WHITE BLOOD COUNT 7.3 10^3/uL (4.0-10.0)
[2021-09-17] MEDS: LIDOCAINE 5% (LIDODERM) PATCH TD SCH (09:00)
[2021-09-17 09:22] LABS: ALBUMIN 3.4 GM/DL (3.2-5.2); BILIRUBIN,TOTAL 0.2 MG/DL (0.2-1.0); CALCIUM LEVEL 10.1 MG/DL (8.8-10.2); CREATININE FOR GFR 1.1 MG/DL (0.55-1.30); GLOMERULAR FILTRATION RATE 53.9 (>45); POTASSIUM SERUM 4.8 MEQ/L (3.5-5.1); TOTAL PROTEIN 6.5 GM/DL (6.4-8.2)
[2021-09-17 18:00] VITALS: BP 130/72
[2021-09-17] MEDS: LITHIUM CARBONATE 150 MG CAP PO SCH (20:21)
[2021-09-17] MEDS: MIRTAZAPINE 15 MG TAB PO SCH (20:21)
[2021-09-17] MEDS: RAMELTEON 8 MG TAB (ROZEREM) PO SCH (20:21)
[2021-09-17] MEDS: lamoTRIgine 100MG TAB PO SCH (20:21)
[2021-09-17] MEDS: **NOTE PATIENT COMMENT** MISC XX SCH (20:22)
[2021-09-18] MEDS: LEVOTHYROXINE 100MCG TABLET (0.1MG) PO SCH (05:50)
[2021-09-18] MEDS: busPIRone 10 MG TAB PO SCH ×3 (08:21→20:44)
[2021-09-18] MEDS: DOCUSATE SODIUM 100MG CAPSULE PO SCH ×2 (08:22→20:44)
[2021-09-18] MEDS: CitaloPRAM (CeleXA) 20 MG TAB PO SCH (08:22)
[2021-09-18] MEDS: CLOBETASOL PROPIONATE EMOLLIENT 0.05% CR 60 GM TOP SCH ×2 (08:22→20:45)
[2021-09-18] MEDS: LIDOCAINE 5% (LIDODERM) PATCH TD SCH (08:22)
[2021-09-18] MEDS: PANTOPRAZOLE 40MG TAB (PROTONIX) PO SCH (08:22)
[2021-09-18] MEDS: clonazePAM 1 MG TAB PO SCH ×2 (08:22→20:45)
[2021-09-18 18:00] VITALS: BP 127/64
[2021-09-18] MEDS: LITHIUM CARBONATE 150 MG CAP PO SCH (20:44)
[2021-09-18] MEDS: lamoTRIgine 100MG TAB PO SCH (20:44)
[2021-09-18] MEDS: MIRTAZAPINE 15 MG TAB PO SCH (20:45)
[2021-09-18] MEDS: RAMELTEON 8 MG TAB (ROZEREM) PO SCH (20:45)
[2021-09-18] MEDS: **NOTE PATIENT COMMENT** MISC XX SCH (20:45)
[2021-09-19] MEDS: LEVOTHYROXINE 100MCG TABLET (0.1MG) PO SCH (05:32)
[2021-09-19] MEDS: CitaloPRAM (CeleXA) 20 MG TAB PO SCH (08:28)
[2021-09-19] MEDS: busPIRone 10 MG TAB PO SCH ×3 (08:28→20:19)
[2021-09-19] MEDS: LIDOCAINE 5% (LIDODERM) PATCH TD SCH (08:28)
[2021-09-19] MEDS: clonazePAM 1 MG TAB PO SCH ×2 (08:28→20:19)
[2021-09-19] MEDS: CLOBETASOL PROPIONATE EMOLLIENT 0.05% CR 60 GM TOP SCH ×2 (08:28→20:18)
[2021-09-19] MEDS: DOCUSATE SODIUM 100MG CAPSULE PO SCH ×2 (08:28→20:18)
[2021-09-19] MEDS: PANTOPRAZOLE 40MG TAB (PROTONIX) PO SCH (08:28)
[2021-09-19 17:30] VITALS: BP 108/62
[2021-09-19] MEDS: LITHIUM CARBONATE 150 MG CAP PO SCH (20:18)
[2021-09-19] MEDS: lamoTRIgine 100MG TAB PO SCH (20:19)
[2021-09-19] MEDS: RAMELTEON 8 MG TAB (ROZEREM) PO SCH (20:19)
[2021-09-19] MEDS: MIRTAZAPINE 15 MG TAB PO SCH (20:19)
[2021-09-19] MEDS: **NOTE PATIENT COMMENT** MISC XX SCH (20:22)
[2021-09-20] MEDS: LEVOTHYROXINE 100MCG TABLET (0.1MG) PO SCH (05:26)
[2021-09-20] MEDS: DOCUSATE SODIUM 100MG CAPSULE PO SCH ×2 (08:48→20:29)
[2021-09-20] MEDS: CitaloPRAM (CeleXA) 20 MG TAB PO SCH (08:48)
[2021-09-20] MEDS: LIDOCAINE 5% (LIDODERM) PATCH TD SCH (08:48)
[2021-09-20] MEDS: clonazePAM 1 MG TAB PO SCH ×2 (08:48→20:29)
[2021-09-20] MEDS: busPIRone 10 MG TAB PO SCH ×3 (08:48→20:30)
[2021-09-20] MEDS: PANTOPRAZOLE 40MG TAB (PROTONIX) PO SCH (08:48)
[2021-09-20] MEDS: CLOBETASOL PROPIONATE EMOLLIENT 0.05% CR 60 GM TOP SCH ×2 (08:49→20:30)
[2021-09-20 17:47] VITALS: BP 116/58
[2021-09-20] MEDS: **NOTE PATIENT COMMENT** MISC XX SCH (20:24)
[2021-09-20] MEDS: LITHIUM CARBONATE 150 MG CAP PO SCH (20:29)
[2021-09-20] MEDS: MIRTAZAPINE 15 MG TAB PO SCH (20:30)
[2021-09-20] MEDS: RAMELTEON 8 MG TAB (ROZEREM) PO SCH (20:30)
[2021-09-20] MEDS: lamoTRIgine 100MG TAB PO SCH (20:30)
[2021-09-21] MEDS: LEVOTHYROXINE 100MCG TABLET (0.1MG) PO SCH (05:52)
[2021-09-21] MEDS: CLOBETASOL PROPIONATE EMOLLIENT 0.05% CR 60 GM TOP SCH ×2 (09:00→20:20)
[2021-09-21] MEDS: LIDOCAINE 5% (LIDODERM) PATCH TD SCH (09:00)
[2021-09-21] MEDS: busPIRone 10 MG TAB PO SCH ×3 (09:02→20:19)
[2021-09-21] MEDS: DOCUSATE SODIUM 100MG CAPSULE PO SCH ×2 (09:02→20:19)
[2021-09-21] MEDS: clonazePAM 1 MG TAB PO SCH ×2 (09:02→20:19)
[2021-09-21] MEDS: PANTOPRAZOLE 40MG TAB (PROTONIX) PO SCH (09:02)
[2021-09-21] MEDS: CitaloPRAM (CeleXA) 20 MG TAB PO SCH (09:02)
[2021-09-21 18:02] VITALS: BP 151/74
[2021-09-21] MEDS: RAMELTEON 8 MG TAB (ROZEREM) PO SCH (20:19)
[2021-09-21] MEDS: LITHIUM CARBONATE 150 MG CAP PO SCH (20:19)
[2021-09-21] MEDS: MIRTAZAPINE 15 MG TAB PO SCH (20:19)
[2021-09-21] MEDS: lamoTRIgine 100MG TAB PO SCH (20:20)
[2021-09-21] MEDS: **NOTE PATIENT COMMENT** MISC XX SCH (20:20)
[2021-09-22] MEDS: LEVOTHYROXINE 100MCG TABLET (0.1MG) PO SCH (05:23)
[2021-09-22] MEDS: CitaloPRAM (CeleXA) 20 MG TAB PO SCH (08:56)
[2021-09-22] MEDS: clonazePAM 1 MG TAB PO SCH ×2 (08:56→20:54)
[2021-09-22] MEDS: DOCUSATE SODIUM 100MG CAPSULE PO SCH ×2 (08:56→20:53)
[2021-09-22] MEDS: PANTOPRAZOLE 40MG TAB (PROTONIX) PO SCH (08:56)
[2021-09-22] MEDS: busPIRone 10 MG TAB PO SCH ×3 (08:57→20:53)
[2021-09-22] MEDS: CLOBETASOL PROPIONATE EMOLLIENT 0.05% CR 60 GM TOP SCH ×2 (08:58→20:53)
[2021-09-22] MEDS: LIDOCAINE 5% (LIDODERM) PATCH TD SCH (08:58)
[2021-09-22 18:46] VITALS: BP 145/83
[2021-09-22] MEDS: RAMELTEON 8 MG TAB (ROZEREM) PO SCH (20:53)
[2021-09-22] MEDS: MIRTAZAPINE 15 MG TAB PO SCH (20:53)
[2021-09-22] MEDS: LITHIUM CARBONATE 150 MG CAP PO SCH (20:53)
[2021-09-22] MEDS: lamoTRIgine 100MG TAB PO SCH (20:54)
[2021-09-22] MEDS: **NOTE PATIENT COMMENT** MISC XX SCH (20:56)
[2021-09-23] MEDS: LEVOTHYROXINE 100MCG TABLET (0.1MG) PO SCH (05:40)
[2021-09-23] MEDS: CLOBETASOL PROPIONATE EMOLLIENT 0.05% CR 60 GM TOP SCH ×2 (09:00→21:05)
[2021-09-23] MEDS: LIDOCAINE 5% (LIDODERM) PATCH TD SCH (09:00)
[2021-09-23] MEDS: clonazePAM 1 MG TAB PO SCH ×2 (09:44→21:06)
[2021-09-23] MEDS: CitaloPRAM (CeleXA) 20 MG TAB PO SCH (09:44)
[2021-09-23] MEDS: PANTOPRAZOLE 40MG TAB (PROTONIX) PO SCH (09:44)
[2021-09-23] MEDS: DOCUSATE SODIUM 100MG CAPSULE PO SCH ×2 (09:44→21:06)
[2021-09-23] MEDS: busPIRone 10 MG TAB PO SCH ×3 (09:44→21:06)
[2021-09-23] MEDS: **NOTE PATIENT COMMENT** MISC XX SCH (21:00)
[2021-09-23] MEDS: lamoTRIgine 100MG TAB PO SCH (21:06)
[2021-09-23] MEDS: MIRTAZAPINE 15 MG TAB PO SCH (21:06)
[2021-09-23] MEDS: RAMELTEON 8 MG TAB (ROZEREM) PO SCH (21:06)
[2021-09-23] MEDS: LITHIUM CARBONATE 150 MG CAP PO SCH (21:06)
[2021-09-24] MEDS: LEVOTHYROXINE 100MCG TABLET (0.1MG) PO SCH (05:23)
[2021-09-24] MEDS: LIDOCAINE 5% (LIDODERM) PATCH TD SCH (09:00)
[2021-09-24] MEDS: CLOBETASOL PROPIONATE EMOLLIENT 0.05% CR 60 GM TOP SCH ×2 (09:00→20:42)
[2021-09-24] MEDS: clonazePAM 1 MG TAB PO SCH ×2 (09:18→20:39)
[2021-09-24] MEDS: busPIRone 10 MG TAB PO SCH ×3 (09:18→20:40)
[2021-09-24] MEDS: PANTOPRAZOLE 40MG TAB (PROTONIX) PO SCH (09:19)
[2021-09-24] MEDS: CitaloPRAM (CeleXA) 20 MG TAB PO SCH (09:19)
[2021-09-24] MEDS: DOCUSATE SODIUM 100MG CAPSULE PO SCH ×2 (09:19→20:40)
[2021-09-24 13:48] LABS: BLOOD UREA NITROGEN 26 MG/DL (7-18); CALCIUM LEVEL 10.1 MG/DL (8.8-10.2); CARBON DIOXIDE LEVEL 29 MEQ/L (21-32); CHLORIDE LEVEL 109 MEQ/L (98-107); GLOMERULAR FILTRATION RATE > 60.0 (>45); GLUCOSE, FASTING 93 MG/DL (70-100); POTASSIUM SERUM 4.5 MEQ/L (3.5-5.1); SODIUM LEVEL 144 MEQ/L (136-145)
[2021-09-24 17:57] VITALS: BP 143/68
[2021-09-24] MEDS: RAMELTEON 8 MG TAB (ROZEREM) PO SCH (20:39)
[2021-09-24] MEDS: lamoTRIgine 100MG TAB PO SCH (20:39)
[2021-09-24] MEDS: MIRTAZAPINE 15 MG TAB PO SCH (20:39)
[2021-09-24] MEDS: LITHIUM CARBONATE 150 MG CAP PO SCH (20:40)
[2021-09-24] MEDS: **NOTE PATIENT COMMENT** MISC XX SCH (20:40)
[2021-09-25] MEDS: LEVOTHYROXINE 100MCG TABLET (0.1MG) PO SCH (05:27)
[2021-09-25] MEDS: PANTOPRAZOLE 40MG TAB (PROTONIX) PO SCH (08:20)
[2021-09-25] MEDS: DOCUSATE SODIUM 100MG CAPSULE PO SCH ×2 (08:20→20:42)
[2021-09-25] MEDS: busPIRone 10 MG TAB PO SCH ×3 (08:20→20:42)
[2021-09-25] MEDS: LIDOCAINE 5% (LIDODERM) PATCH TD SCH (08:21)
[2021-09-25] MEDS: clonazePAM 1 MG TAB PO SCH ×2 (08:21→20:42)
[2021-09-25] MEDS: CitaloPRAM (CeleXA) 20 MG TAB PO SCH (08:21)
[2021-09-25] MEDS: CLOBETASOL PROPIONATE EMOLLIENT 0.05% CR 60 GM TOP SCH (09:00)
[2021-09-25] MEDS: CLOBETASOL PROP 0.05% OINT 30 GM TOP SCH ×2 (13:44→20:41)
[2021-09-25 18:00] VITALS: BP 131/68
[2021-09-25] MEDS: RAMELTEON 8 MG TAB (ROZEREM) PO SCH (20:42)
[2021-09-25] MEDS: lamoTRIgine 100MG TAB PO SCH (20:42)
[2021-09-25] MEDS: MIRTAZAPINE 15 MG TAB PO SCH (20:42)
[2021-09-25] MEDS: **NOTE PATIENT COMMENT** MISC XX SCH (20:43)
[2021-09-25] MEDS: LITHIUM CARBONATE 150 MG CAP PO SCH (20:43)
[2021-09-26] MEDS: LEVOTHYROXINE 100MCG TABLET (0.1MG) PO SCH (05:19)
[2021-09-26] MEDS: busPIRone 10 MG TAB PO SCH ×3 (08:46→21:09)
[2021-09-26] MEDS: CitaloPRAM (CeleXA) 20 MG TAB PO SCH (08:47)
[2021-09-26] MEDS: DOCUSATE SODIUM 100MG CAPSULE PO SCH ×2 (08:47→21:09)
[2021-09-26] MEDS: PANTOPRAZOLE 40MG TAB (PROTONIX) PO SCH (08:47)
[2021-09-26] MEDS: clonazePAM 1 MG TAB PO SCH ×2 (08:48→21:09)
[2021-09-26] MEDS: LIDOCAINE 5% (LIDODERM) PATCH TD SCH (08:49)
[2021-09-26] MEDS: CLOBETASOL PROP 0.05% OINT 30 GM TOP SCH ×2 (08:49→21:08)
[2021-09-26 18:00] VITALS: BP 141/77
[2021-09-26] MEDS: **NOTE PATIENT COMMENT** MISC XX SCH (21:00)
[2021-09-26] MEDS: lamoTRIgine 100MG TAB PO SCH (21:08)
[2021-09-26] MEDS: RAMELTEON 8 MG TAB (ROZEREM) PO SCH (21:08)
[2021-09-26] MEDS: MIRTAZAPINE 15 MG TAB PO SCH (21:08)
[2021-09-26] MEDS: LITHIUM CARBONATE 150 MG CAP PO SCH (21:08)
[2021-09-27] MEDS: LEVOTHYROXINE 100MCG TABLET (0.1MG) PO SCH (05:33)
[2021-09-27] MEDS: LIDOCAINE 5% (LIDODERM) PATCH TD SCH (08:24)
[2021-09-27] MEDS: CLOBETASOL PROP 0.05% OINT 30 GM TOP SCH ×2 (08:25→20:34)
[2021-09-27] MEDS: PANTOPRAZOLE 40MG TAB (PROTONIX) PO SCH (08:27)
[2021-09-27] MEDS: busPIRone 10 MG TAB PO SCH ×3 (08:27→20:35)
[2021-09-27] MEDS: CitaloPRAM (CeleXA) 20 MG TAB PO SCH (08:27)
[2021-09-27] MEDS: DOCUSATE SODIUM 100MG CAPSULE PO SCH ×2 (08:27→20:34)
[2021-09-27] MEDS: clonazePAM 1 MG TAB PO SCH ×2 (08:27→20:35)
[2021-09-27] MEDS: MIRTAZAPINE 15 MG TAB PO SCH (20:34)
[2021-09-27] MEDS: RAMELTEON 8 MG TAB (ROZEREM) PO SCH (20:35)
[2021-09-27] MEDS: lamoTRIgine 100MG TAB PO SCH (20:35)
[2021-09-27] MEDS: LITHIUM CARBONATE 150 MG CAP PO SCH (20:35)
[2021-09-27] MEDS: **NOTE PATIENT COMMENT** MISC XX SCH (20:38)
[2021-09-28] MEDS: LEVOTHYROXINE 100MCG TABLET (0.1MG) PO SCH (05:43)
[2021-09-28] MEDS: CitaloPRAM (CeleXA) 20 MG TAB PO SCH (08:42)
[2021-09-28] MEDS: DOCUSATE SODIUM 100MG CAPSULE PO SCH ×2 (08:42→20:22)
[2021-09-28] MEDS: PANTOPRAZOLE 40MG TAB (PROTONIX) PO SCH (08:42)
[2021-09-28] MEDS: clonazePAM 1 MG TAB PO SCH ×2 (08:42→20:22)
[2021-09-28] MEDS: busPIRone 10 MG TAB PO SCH ×3 (08:42→20:22)
[2021-09-28] MEDS: LIDOCAINE 5% (LIDODERM) PATCH TD SCH (08:43)
[2021-09-28] MEDS: CLOBETASOL PROP 0.05% OINT 30 GM TOP SCH ×2 (08:44→20:21)
[2021-09-28 18:59] VITALS: BP 131/75
[2021-09-28] MEDS: MIRTAZAPINE 15 MG TAB PO SCH (20:21)
[2021-09-28] MEDS: RAMELTEON 8 MG TAB (ROZEREM) PO SCH (20:21)
[2021-09-28] MEDS: LITHIUM CARBONATE 150 MG CAP PO SCH (20:22)
[2021-09-28] MEDS: lamoTRIgine 100MG TAB PO SCH (20:22)
[2021-09-28] MEDS: **NOTE PATIENT COMMENT** MISC XX SCH (20:24)
[2021-09-28] MEDS: CALCIPOTRIENE CREAM 0.005% 60GM TOP SCH (21:00)
[2021-09-29] MEDS: LEVOTHYROXINE 100MCG TABLET (0.1MG) PO SCH (05:26)
[2021-09-29] MEDS: LIDOCAINE 5% (LIDODERM) PATCH TD SCH (09:00)
[2021-09-29] MEDS: PANTOPRAZOLE 40MG TAB (PROTONIX) PO SCH (09:12)
[2021-09-29] MEDS: DOCUSATE SODIUM 100MG CAPSULE PO SCH ×2 (09:12→21:03)
[2021-09-29] MEDS: busPIRone 10 MG TAB PO SCH ×3 (09:12→21:03)
[2021-09-29] MEDS: CitaloPRAM (CeleXA) 20 MG TAB PO SCH (09:13)
[2021-09-29] MEDS: clonazePAM 1 MG TAB PO SCH ×2 (09:13→21:03)
[2021-09-29] MEDS: CALCIPOTRIENE CREAM 0.005% 60GM TOP SCH ×2 (09:15→21:05)
[2021-09-29] MEDS: CLOBETASOL PROP 0.05% OINT 30 GM TOP SCH ×2 (09:16→21:06)
[2021-09-29 18:00] VITALS: BP 125/77
[2021-09-29] MEDS: **NOTE PATIENT COMMENT** MISC XX SCH (21:00)
[2021-09-29] MEDS: LITHIUM CARBONATE 150 MG CAP PO SCH (21:03)
[2021-09-29] MEDS: RAMELTEON 8 MG TAB (ROZEREM) PO SCH (21:04)
[2021-09-29] MEDS: lamoTRIgine 100MG TAB PO SCH (21:04)
[2021-09-29] MEDS: MIRTAZAPINE 15 MG TAB PO SCH (21:04)
[2021-09-30] MEDS: LEVOTHYROXINE 100MCG TABLET (0.1MG) PO SCH (05:15)
[2021-09-30] MEDS: clonazePAM 1 MG TAB PO SCH ×2 (08:47→21:17)
[2021-09-30] MEDS: CitaloPRAM (CeleXA) 20 MG TAB PO SCH (08:47)
[2021-09-30] MEDS: PANTOPRAZOLE 40MG TAB (PROTONIX) PO SCH (08:47)
[2021-09-30] MEDS: DOCUSATE SODIUM 100MG CAPSULE PO SCH ×2 (08:47→21:16)
[2021-09-30] MEDS: busPIRone 10 MG TAB PO SCH ×3 (08:47→21:16)
[2021-09-30] MEDS: CLOBETASOL PROP 0.05% OINT 30 GM TOP SCH ×2 (08:48→21:00)
[2021-09-30] MEDS: CALCIPOTRIENE CREAM 0.005% 60GM TOP SCH ×2 (08:48→21:00)
[2021-09-30] MEDS: LIDOCAINE 5% (LIDODERM) PATCH TD SCH (09:00)
[2021-09-30 18:00] VITALS: BP 138/84
[2021-09-30] MEDS: **NOTE PATIENT COMMENT** MISC XX SCH (21:00)
[2021-09-30] MEDS: lamoTRIgine 100MG TAB PO SCH (21:16)
[2021-09-30] MEDS: MIRTAZAPINE 15 MG TAB PO SCH (21:16)
[2021-09-30] MEDS: RAMELTEON 8 MG TAB (ROZEREM) PO SCH (21:16)
[2021-09-30] MEDS: LITHIUM CARBONATE 150 MG CAP PO SCH (21:16)
[2021-10-01] MEDS: LEVOTHYROXINE 100MCG TABLET (0.1MG) PO SCH (05:34)
[2021-10-01] MEDS: LIDOCAINE 5% (LIDODERM) PATCH TD SCH (08:05)
[2021-10-01] MEDS: CALCIPOTRIENE CREAM 0.005% 60GM TOP SCH ×2 (08:09→20:55)
[2021-10-01] MEDS: DOCUSATE SODIUM 100MG CAPSULE PO SCH ×2 (08:10→20:56)
[2021-10-01] MEDS: PANTOPRAZOLE 40MG TAB (PROTONIX) PO SCH (08:10)
[2021-10-01] MEDS: busPIRone 10 MG TAB PO SCH ×3 (08:10→20:56)
[2021-10-01] MEDS: CitaloPRAM (CeleXA) 20 MG TAB PO SCH (08:10)
[2021-10-01] MEDS: clonazePAM 1 MG TAB PO SCH ×2 (08:10→20:57)
[2021-10-01] MEDS: CLOBETASOL PROP 0.05% OINT 30 GM TOP SCH ×2 (08:11→20:56)
[2021-10-01 16:21] VITALS: BP 148/90
[2021-10-01] MEDS: MIRTAZAPINE 15 MG TAB PO SCH (20:56)
[2021-10-01] MEDS: lamoTRIgine 100MG TAB PO SCH (20:56)
[2021-10-01] MEDS: RAMELTEON 8 MG TAB (ROZEREM) PO SCH (20:56)
[2021-10-01] MEDS: LITHIUM CARBONATE 150 MG CAP PO SCH (20:57)
[2021-10-01] MEDS: **NOTE PATIENT COMMENT** MISC XX SCH (20:57)
[2021-10-02] MEDS: LEVOTHYROXINE 100MCG TABLET (0.1MG) PO SCH (05:51)
[2021-10-02] MEDS: LIDOCAINE 5% (LIDODERM) PATCH TD SCH (08:20)
[2021-10-02] MEDS: DOCUSATE SODIUM 100MG CAPSULE PO SCH ×2 (08:22→21:16)
[2021-10-02] MEDS: CitaloPRAM (CeleXA) 20 MG TAB PO SCH (08:22)
[2021-10-02] MEDS: PANTOPRAZOLE 40MG TAB (PROTONIX) PO SCH (08:22)
[2021-10-02] MEDS: CLOBETASOL PROP 0.05% OINT 30 GM TOP SCH ×2 (08:22→21:00)
[2021-10-02] MEDS: busPIRone 10 MG TAB PO SCH ×3 (08:22→21:14)
[2021-10-02] MEDS: clonazePAM 1 MG TAB PO SCH ×2 (08:22→21:16)
[2021-10-02] MEDS: CALCIPOTRIENE CREAM 0.005% 60GM TOP SCH ×2 (08:22→21:17)
[2021-10-02 16:53] VITALS: BP 141/78
[2021-10-02] MEDS: **NOTE PATIENT COMMENT** MISC XX SCH (21:00)
[2021-10-02] MEDS: RAMELTEON 8 MG TAB (ROZEREM) PO SCH (21:12)
[2021-10-02] MEDS: MIRTAZAPINE 15 MG TAB PO SCH (21:12)
[2021-10-02] MEDS: lamoTRIgine 100MG TAB PO SCH (21:13)
[2021-10-02] MEDS: TRIAMCINOLONE ACET 0.1% OINTMENT 15 GM TOP SCH (21:14)
[2021-10-02] MEDS: LITHIUM CARBONATE 150 MG CAP PO SCH (21:16)
[2021-10-02] MEDS: BETAMETHASONE DIP 0.05% OINT 15 GM TOP SCH (21:16)
[2021-10-03] MEDS: LEVOTHYROXINE 100MCG TABLET (0.1MG) PO SCH (05:24)
[2021-10-03] MEDS: LIDOCAINE 5% (LIDODERM) PATCH TD SCH (08:06)
[2021-10-03] MEDS: PANTOPRAZOLE 40MG TAB (PROTONIX) PO SCH (08:10)
[2021-10-03] MEDS: busPIRone 10 MG TAB PO SCH ×3 (08:10→20:59)
[2021-10-03] MEDS: clonazePAM 1 MG TAB PO SCH ×2 (08:10→20:59)
[2021-10-03] MEDS: DOCUSATE SODIUM 100MG CAPSULE PO SCH ×2 (08:10→20:59)
[2021-10-03] MEDS: CitaloPRAM (CeleXA) 20 MG TAB PO SCH (08:10)
[2021-10-03] MEDS: TRIAMCINOLONE ACET 0.1% OINTMENT 15 GM TOP SCH ×2 (08:11→21:00)
[2021-10-03] MEDS: CLOBETASOL PROP 0.05% OINT 30 GM TOP SCH ×2 (08:12→21:00)
[2021-10-03] MEDS: BETAMETHASONE DIP 0.05% OINT 15 GM TOP SCH ×2 (08:12→20:59)
[2021-10-03] MEDS: CALCIPOTRIENE CREAM 0.005% 60GM TOP SCH ×2 (08:13→20:57)
[2021-10-03 16:50] VITALS: BP 128/68
[2021-10-03] MEDS: lamoTRIgine 100MG TAB PO SCH (20:59)
[2021-10-03] MEDS: MIRTAZAPINE 15 MG TAB PO SCH (20:59)
[2021-10-03] MEDS: LITHIUM CARBONATE 150 MG CAP PO SCH (20:59)
[2021-10-03] MEDS: RAMELTEON 8 MG TAB (ROZEREM) PO SCH (20:59)
[2021-10-03] MEDS: **NOTE PATIENT COMMENT** MISC XX SCH (21:00)
[2021-10-04] MEDS: LEVOTHYROXINE 100MCG TABLET (0.1MG) PO SCH (05:44)
[2021-10-04] MEDS: LIDOCAINE 5% (LIDODERM) PATCH TD SCH (09:00)
[2021-10-04] MEDS: PANTOPRAZOLE 40MG TAB (PROTONIX) PO SCH (09:46)
[2021-10-04] MEDS: CitaloPRAM (CeleXA) 20 MG TAB PO SCH (09:46)
[2021-10-04] MEDS: DOCUSATE SODIUM 100MG CAPSULE PO SCH ×2 (09:46→21:10)
[2021-10-04] MEDS: busPIRone 10 MG TAB PO SCH ×3 (09:46→21:10)
[2021-10-04] MEDS: clonazePAM 1 MG TAB PO SCH ×2 (09:47→21:10)
[2021-10-04] MEDS: CALCIPOTRIENE CREAM 0.005% 60GM TOP SCH ×2 (09:50→21:12)
[2021-10-04] MEDS: BETAMETHASONE DIP 0.05% OINT 15 GM TOP SCH ×2 (09:51→21:11)
[2021-10-04] MEDS: TRIAMCINOLONE ACET 0.1% OINTMENT 15 GM TOP SCH ×2 (09:51→21:11)
[2021-10-04] MEDS: CLOBETASOL PROP 0.05% OINT 30 GM TOP SCH ×2 (09:52→21:13)
[2021-10-04 17:45] VITALS: BP 138/73
[2021-10-04] MEDS: **NOTE PATIENT COMMENT** MISC XX SCH (21:00)
[2021-10-04] MEDS: lamoTRIgine 100MG TAB PO SCH (21:09)
[2021-10-04] MEDS: RAMELTEON 8 MG TAB (ROZEREM) PO SCH (21:10)
[2021-10-04] MEDS: LITHIUM CARBONATE 150 MG CAP PO SCH (21:10)
[2021-10-04] MEDS: MIRTAZAPINE 15 MG TAB PO SCH (21:10)
[2021-10-05] MEDS: ACETAMINOPHEN TAB 650MG DOSE (2X325MG) PO PRN (04:05)
[2021-10-05] MEDS: LEVOTHYROXINE 100MCG TABLET (0.1MG) PO SCH (05:20)
[2021-10-05] MEDS: LIDOCAINE 5% (LIDODERM) PATCH TD SCH (07:52)
[2021-10-05] MEDS: CitaloPRAM (CeleXA) 20 MG TAB PO SCH (07:57)
[2021-10-05] MEDS: busPIRone 10 MG TAB PO SCH ×3 (07:57→20:53)
[2021-10-05] MEDS: PANTOPRAZOLE 40MG TAB (PROTONIX) PO SCH (07:58)
[2021-10-05] MEDS: clonazePAM 1 MG TAB PO SCH ×2 (08:00→20:54)
[2021-10-05] MEDS: DOCUSATE SODIUM 100MG CAPSULE PO SCH ×2 (08:01→20:53)
[2021-10-05] MEDS: CLOBETASOL PROP 0.05% OINT 30 GM TOP SCH ×2 (08:03→20:56)
[2021-10-05] MEDS: CALCIPOTRIENE CREAM 0.005% 60GM TOP SCH ×2 (08:03→20:55)
[2021-10-05] MEDS: TRIAMCINOLONE ACET 0.1% OINTMENT 15 GM TOP SCH ×2 (08:03→20:52)
[2021-10-05] MEDS: BETAMETHASONE DIP 0.05% OINT 15 GM TOP SCH ×2 (08:04→20:53)
[2021-10-05] MEDS: LITHIUM CARBONATE 150 MG CAP PO SCH (20:53)
[2021-10-05] MEDS: RAMELTEON 8 MG TAB (ROZEREM) PO SCH (20:53)
[2021-10-05] MEDS: lamoTRIgine 100MG TAB PO SCH (20:53)
[2021-10-05] MEDS: MIRTAZAPINE 15 MG TAB PO SCH (20:53)
[2021-10-05] MEDS: **NOTE PATIENT COMMENT** MISC XX SCH (20:56)
[2021-10-06] MEDS: LEVOTHYROXINE 100MCG TABLET (0.1MG) PO SCH (05:18)
[2021-10-06] MEDS: clonazePAM 1 MG TAB PO SCH ×2 (08:00→20:29)
[2021-10-06] MEDS: CitaloPRAM (CeleXA) 20 MG TAB PO SCH (08:00)
[2021-10-06] MEDS: PANTOPRAZOLE 40MG TAB (PROTONIX) PO SCH (08:00)
[2021-10-06] MEDS: DOCUSATE SODIUM 100MG CAPSULE PO SCH ×2 (08:00→20:29)
[2021-10-06] MEDS: busPIRone 10 MG TAB PO SCH ×3 (08:00→20:29)
[2021-10-06] MEDS: LIDOCAINE 5% (LIDODERM) PATCH TD SCH (08:03)
[2021-10-06] MEDS: BETAMETHASONE DIP 0.05% OINT 15 GM TOP SCH ×2 (08:03→20:29)
[2021-10-06] MEDS: CALCIPOTRIENE CREAM 0.005% 60GM TOP SCH ×2 (08:03→20:31)
[2021-10-06] MEDS: TRIAMCINOLONE ACET 0.1% OINTMENT 15 GM TOP SCH ×2 (08:03→20:30)
[2021-10-06] MEDS: CLOBETASOL PROP 0.05% OINT 30 GM TOP SCH ×2 (08:04→20:32)
[2021-10-06 16:38] VITALS: BP 132/82
[2021-10-06] MEDS: lamoTRIgine 100MG TAB PO SCH (20:28)
[2021-10-06] MEDS: MIRTAZAPINE 15 MG TAB PO SCH (20:28)
[2021-10-06] MEDS: RAMELTEON 8 MG TAB (ROZEREM) PO SCH (20:29)
[2021-10-06] MEDS: LITHIUM CARBONATE 150 MG CAP PO SCH (20:29)
[2021-10-06] MEDS: **NOTE PATIENT COMMENT** MISC XX SCH (20:32)
[2021-10-07] MEDS: LEVOTHYROXINE 100MCG TABLET (0.1MG) PO SCH (05:34)
[2021-10-07] MEDS: clonazePAM 1 MG TAB PO SCH ×2 (08:09→20:38)
[2021-10-07] MEDS: CitaloPRAM (CeleXA) 20 MG TAB PO SCH (08:10)
[2021-10-07] MEDS: PANTOPRAZOLE 40MG TAB (PROTONIX) PO SCH (08:10)
[2021-10-07] MEDS: DOCUSATE SODIUM 100MG CAPSULE PO SCH ×2 (08:10→20:38)
[2021-10-07] MEDS: busPIRone 10 MG TAB PO SCH ×3 (08:10→20:38)
[2021-10-07] MEDS: CLOBETASOL PROP 0.05% OINT 30 GM TOP SCH ×2 (09:00→20:41)
[2021-10-07] MEDS: CALCIPOTRIENE CREAM 0.005% 60GM TOP SCH ×2 (09:00→20:41)
[2021-10-07] MEDS: TRIAMCINOLONE ACET 0.1% OINTMENT 15 GM TOP SCH ×2 (09:00→20:39)
[2021-10-07] MEDS: LIDOCAINE 5% (LIDODERM) PATCH TD SCH (09:00)
[2021-10-07] MEDS: BETAMETHASONE DIP 0.05% OINT 15 GM TOP SCH ×2 (09:00→20:39)
[2021-10-07 16:39] VITALS: BP 119/65
[2021-10-07] MEDS: RAMELTEON 8 MG TAB (ROZEREM) PO SCH (20:38)
[2021-10-07] MEDS: lamoTRIgine 100MG TAB PO SCH (20:38)
[2021-10-07] MEDS: LITHIUM CARBONATE 150 MG CAP PO SCH (20:38)
[2021-10-07] MEDS: MIRTAZAPINE 15 MG TAB PO SCH (20:38)
[2021-10-07] MEDS: **NOTE PATIENT COMMENT** MISC XX SCH (20:41)
[2021-10-08] MEDS: LEVOTHYROXINE 100MCG TABLET (0.1MG) PO SCH (05:12)
[2021-10-08] MEDS: LIDOCAINE 5% (LIDODERM) PATCH TD SCH (08:01)
[2021-10-08] MEDS: CALCIPOTRIENE CREAM 0.005% 60GM TOP SCH ×2 (08:02→20:16)
[2021-10-08] MEDS: TRIAMCINOLONE ACET 0.1% OINTMENT 15 GM TOP SCH ×2 (08:06→20:17)
[2021-10-08] MEDS: BETAMETHASONE DIP 0.05% OINT 15 GM TOP SCH ×2 (08:07→20:16)
[2021-10-08] MEDS: CLOBETASOL PROP 0.05% OINT 30 GM TOP SCH ×2 (08:08→20:13)
[2021-10-08] MEDS: busPIRone 10 MG TAB PO SCH ×3 (08:09→20:15)
[2021-10-08] MEDS: PANTOPRAZOLE 40MG TAB (PROTONIX) PO SCH (08:09)
[2021-10-08] MEDS: DOCUSATE SODIUM 100MG CAPSULE PO SCH ×2 (08:09→20:15)
[2021-10-08] MEDS: CitaloPRAM (CeleXA) 20 MG TAB PO SCH (08:10)
[2021-10-08] MEDS: clonazePAM 1 MG TAB PO SCH ×2 (08:10→20:15)
[2021-10-08] MEDS ORDERED: ENTER DRUG NAME HERE (PATIENT'S OWN MED) IV ONE (15:40)
[2021-10-08] MEDS ORDERED: ETANERCEPT SQ SCH (17:00)
[2021-10-08] MEDS ORDERED: [UNRECOGNIZED DRUG - OTHER] SQ SCH (17:00)
[2021-10-08 18:00] VITALS: BP 131/81
[2021-10-08] MEDS: **NOTE PATIENT COMMENT** MISC XX SCH (20:14)
[2021-10-08] MEDS: lamoTRIgine 100MG TAB PO SCH (20:15)
[2021-10-08] MEDS: LITHIUM CARBONATE 150 MG CAP PO SCH (20:15)
[2021-10-08] MEDS: MIRTAZAPINE 15 MG TAB PO SCH (20:15)
[2021-10-08] MEDS: RAMELTEON 8 MG TAB (ROZEREM) PO SCH (20:15)
[2021-10-09] MEDS: LEVOTHYROXINE 100MCG TABLET (0.1MG) PO SCH (05:14)
[2021-10-09] MEDS ORDERED: CLON1TAB8 PO (08:11)
[2021-10-09] MEDS ORDERED: LITH150C PO (08:11)
[2021-10-09] MEDS ORDERED: PANT40TA29 PO (08:11)
[2021-10-09] MEDS ORDERED: BETA5OI TOP (08:11)
[2021-10-09] MEDS ORDERED: CELE20TA PO (08:11)
[2021-10-09] MEDS ORDERED: CALC0.009 TOP (08:11)
[2021-10-09] MEDS ORDERED: LAMO100T80 PO (08:11)
[2021-10-09] MEDS ORDERED: RAME8TAB2 PO (08:11)
[2021-10-09] MEDS ORDERED: LEVO100T5 PO (08:11)
[2021-10-09] MEDS ORDERED: BUSP10TA PO (08:11)
[2021-10-09] MEDS ORDERED: Patient Own Medication SQ (08:11)
[2021-10-09] MEDS ORDERED: TRIA1OI TOP (08:11)
[2021-10-09] MEDS ORDERED: CLON0.5T2 PO (08:11)
[2021-10-09] MEDS ORDERED: MIRT-10 PO (08:11)
[2021-10-09] MEDS: CALCIPOTRIENE CREAM 0.005% 60GM TOP SCH (09:00)
[2021-10-09] MEDS: CLOBETASOL PROP 0.05% OINT 30 GM TOP SCH (09:00)
[2021-10-09] MEDS: LIDOCAINE 5% (LIDODERM) PATCH TD SCH (09:00)
[2021-10-09] MEDS: TRIAMCINOLONE ACET 0.1% OINTMENT 15 GM TOP SCH (09:00)
[2021-10-09] MEDS: clonazePAM 1 MG TAB PO SCH (09:24)
[2021-10-09] MEDS: busPIRone 10 MG TAB PO SCH (09:24)
[2021-10-09] MEDS: PANTOPRAZOLE 40MG TAB (PROTONIX) PO SCH (09:24)
[2021-10-09] MEDS: CitaloPRAM (CeleXA) 20 MG TAB PO SCH (09:24)
[2021-10-09] MEDS: DOCUSATE SODIUM 100MG CAPSULE PO SCH (09:24)
[2021-10-09] MEDS: BETAMETHASONE DIP 0.05% OINT 15 GM TOP SCH (09:30)
== END 2021-10-09 14:37 | DRG 885 ==
LOC: M PSY 18:19
PROVIDERS: ADMIT Student in an Organized Health Care Education/Training Program; ATTEND Student in an Organized Health Care Education/Training Program
DX: F31.60 Bipolar disorder, current episode mixed, unspecified (principal); F43.10 Post-traumatic stress disorder, unspecified; E03.9 Hypothyroidism, unspecified; Z91.51 Personal history of suicidal behavior; L40.50 Arthropathic psoriasis, unspecified; K74.60 Unspecified cirrhosis of liver; R91.8 Other nonspecific abnormal finding of lung field; F41.1 Generalized anxiety disorder; F60.89 Other specific personality disorders; Z79.899 Other long term (current) drug therapy; Z88.5 Allergy status to narcotic agent; Z88.8 Allergy status to other drugs, medicaments and biological substances; Z20.822 Contact with and (suspected) exposure to COVID-19; S32.011S Stable burst fracture of first lumbar vertebra, sequela; Z63.8 Other specified problems related to primary support group; B02.9 Zoster without complications; H02.841 Edema of right upper eyelid; K59.00 Constipation, unspecified; R41.9 Unspecified symptoms and signs involving cognitive functions and awareness; S30.0XXA Contusion of lower back and pelvis, initial encounter; S40.022A Contusion of left upper arm, initial encounter; S00.83XA Contusion of other part of head, initial encounter; Y04.8XXA Assault by other bodily force, initial encounter; Y92.238 Other place in hospital as the place of occurrence of the external cause

== ENCOUNTER → 2022-12-24 | Outpatient (REF) | payer MEDICARE, OTHER ==
[~2022-12-24] MED LIST changes: +BETA5OI TOP; +CALC0.009 TOP; +CLON0.5T2 PO; +LAMO100T80 PO; +LEVO100T5 PO; +LITH150C PO; +LORA1TAB23 PO; -LORA1TAB4 PO; +Patient Own Medication SQ; +RAME8TAB2 PO; +TRIA1OI TOP
[2022-12-24 17:25] LABS: C REACTIVE PROTEIN QUANTITATIV < 0.40 MG/DL (<1.0)
[2022-12-24 17:26] LABS: LITHIUM LEVEL 0.74 MMOL/L (1.0-1.20)
[2022-12-24 17:44] LABS: CA19-9 TUMOR MARKER,CARBOHYDRA 6.2 U/ML (<35.0)
[2022-12-24 18:08] LABS: INR 0.95; PROTHROMBIN TIME 12.4 SECONDS (12.5-14.5)
== END ==
LOC: M LAB REF 16:13
PROVIDERS: ATTEND Internal Medicine
DX: M79.10 Myalgia, unspecified site (principal); R10.13 Epigastric pain

== ENCOUNTER → 2023-07-04 | Outpatient (CLI) | payer MEDICARE, OTHER ==
[~2023-07-04] MED LIST changes: +CALC0.0017 TOP; -CALC0.009 TOP
[2023-07-04 19:20] LABS: ALBUMIN 3.7 G/DL (3.2-5.2); ALKALINE PHOSPHATASE 130 U/L (46-116); ALT/SGPT 20 U/L (7.0-40); AST/SGOT 14 U/L (<34); BILIRUBIN,TOTAL 0.6 MG/DL (0.3-1.2); BLOOD UREA NITROGEN 13 MG/DL (9-23); CALCIUM LEVEL 8.9 MG/DL (8.3-10.6); CARBON DIOXIDE LEVEL 27 MMOL/L (20-31); CHLORIDE LEVEL 108 MMOL/L (98-107); CREATININE FOR GFR 0.91 MG/DL (0.55-1.30); GLOMERULAR FILTRATION RATE > 60.0 (>45); GLUCOSE, FASTING 87 MG/DL (74-106); POTASSIUM SERUM 4.4 MMOL/L (3.5-5.1); SODIUM LEVEL 141 MMOL/L (136-145); TOTAL PROTEIN 6.1 G/DL (5.7-8.2)
[2023-07-04 19:22] LABS: LITHIUM LEVEL 0.66 MMOL/L (1.0-1.20); THYROID STIMULATING HORMONE 1.003 uIU/ML (0.55-4.78)
[2023-07-04 19:23] LABS: FREE T4 1.21 NG/DL (0.89-1.76)
[2023-07-04 19:47] LABS: HEMOGLOBIN A1c 4.7 % (4.0-6.0)
== END ==
LOC: M WUC 10:17
PROVIDERS: ATTEND Psychiatry & Neurology Psychiatry
DX: Z79.899 Other long term (current) drug therapy (principal)